=== PATIENT | male | born 1960 | race Caucasian/White ===

== ENCOUNTER → 2018-03-14 | Outpatient (CLI) | payer MEDICARE, OTHER ==
--- NOTE | 2018-03-14 12:47 | Diagnostic Imaging Report ---
PROCEDURE:KNEE LEFT THREE VIEWS TECHNIQUE:AP, lateral and oblique views left knee INDICATION:Knee pain; internal derangement. COMPARISON:None. FINDINGS: The left knee is intact. Mild 3 compartment joint space narrowing with small marginal osteophytes and subchondral sclerosis. Tibial spine spurring. Small suprapatellar effusion. Index soft tissues. CONCLUSION: Small effusion with 3 compartment degenerative change. Dictated by: Víctor Hernandez M.D. on 03/14/2018 at 12:51 Electronically approved by: Víctor Hernandez M.D. on 03/14/2018 at 12:51
== END ==
LOC: RAD 11:47
PROVIDERS: ATTEND Family Medicine
DX: M23.8X2 Other internal derangements of left knee (principal)

== ENCOUNTER → 2018-03-20 | Outpatient (CLI) | payer MEDICARE, OTHER ==
--- NOTE | 2018-03-21 09:03 | Diagnostic Imaging Report ---
Left knee MRI without contrast. History: Knee pain. Internal arrangement. Fall. Decreased range of motion Comparison: October 26, 2016. Technique: Multiplanar multi-sequence MRI of the knee without contrast. Findings: Medial compartment: There is an obliquely oriented tear involving the posterior horn of the medial meniscus which is essentially unchanged. The medial compartmental articular cartilage surfaces are thinned with regions of fraying and fissuring. There are small peripheral marginal osteophytes. The medial collateral ligament complex is intact. Lateral compartment: There is a complex lateral meniscal tear involving the anterior horn and body segments. There are regions of full-thickness articular cartilage loss in the lateral compartment with underlying bone marrow edema. This is worse when compared with the prior exam. There are peripheral marginal osteophytes. The lateral collateral ligament complex is intact. Intercondylar notch: The ACL and PCL are intact. Patellofemoral compartment: There are regions of full-thickness articular cartilage loss in the patellofemoral compartment with underlying bone marrow edema. Extensor mechanism: The quadriceps and patellar tendons are normal. Other findings: There is a joint effusion and synovitis. There is no acute fracture, subluxation or avascular necrosis. 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 IMPRESSION: Complex lateral meniscal tear with advanced degenerative arthrosis in the lateral compartment of the knee. This is worse when compared with the prior exam. Nondisplaced medial meniscal tear with early degenerative arthrosis in the medial compartment of the knee. This is essentially unchanged Regions of full-thickness articular cartilage loss in the patellofemoral compartment with mild underlying bone marrow edema. This is essentially unchanged Joint effusion, synovitis and lobulated Laughlin's cyst. This is essentially unchanged. Signed by: Dr. Geronimo Al M.D. on 03/21/2018 9:00 AM
== END ==
LOC: MRI 16:07
PROVIDERS: ATTEND Family Medicine
DX: M23.8X2 Other internal derangements of left knee (principal)

== ENCOUNTER 2018-05-02 09:52 | Emergency (ER) | payer MEDICARE, OTHER ==
[~2018-05-02] VITALS: Ht 172.7 cm; Wt 86.2 kg
[2018-05-02] MEDS ORDERED: ASPIRIN 81 MG CHEW TAB PO ONE (10:00)
--- NOTE | 2018-05-02 12:02 | Diagnostic Imaging Report ---
History:Confusion Comparison studies:MRI brain 03/25/2015 Technique: Axial images were obtained from the skull base to the vertex. Coronal and sagittal images reconstructed from the axial data. Intravenous contrast: None Findings: Scalp/skull: No acute abnormalities. Bifrontal nuha holes Extra-axial spaces: No masses. No fluid collections. Brain sulci: Moderately prominent the frontal convexities. Ventricles: Moderate compensatory dilatation. No hydrocephalus. Parenchyma: Scattered small hypodensities in the supratentorial white matter are small vessel ischemic changes. No masses, hemorrhage, acute or chronic cortical vascular insults. Sellar/suprasellar region: No abnormalities. Craniocervical junction: Patent foramen magnum. No Chiari one malformation. Incidental findings: Atherosclerotic calcifications in the carotid siphons . Impression: No acute abnormalities. Chronic findings: 1. Moderate frontal volume loss, this could be seen in some dementias. Mild generalized bone 2. Stable ventriculomegaly more prominent at the frontal horns, could be seen in volume loss or normal pressure hydrocephalus. 3. Mild supratentorial white matter small vessel ischemic changes. 4. Bifrontal nuha holes. Signed by: DR Marcial Diaz M.D. on 05/02/2018 11:59 AM
== END 2018-05-02 10:39 | disposition home or self-care (01) ==
LOC: ER 09:52
DX: R53.1 Weakness (principal); R26.2 Difficulty in walking, not elsewhere classified; F17.210 Nicotine dependence, cigarettes, uncomplicated
CPT/HCPCS: 70450; 99283

== ENCOUNTER 2018-06-10 20:40 | Inpatient (IN) | payer MEDICARE, OTHER ==
[~2018-06-10] VITALS: Ht 170.2 cm; Wt 89.9 kg
[2018-06-10 21:12] LABS: BASOPHILS % 0.2 % (0.0-1.0); EOSINOPHILS % 0.3 % (0.0-6.0); HEMATOCRIT 35.6 % (38.2-49.6); HEMOGLOBIN 12.4 g/dL (14.0-18.0); LYMPHOCYTES # (AUTO) 2.1 (1.0-3.2); LYMPHOCYTES % 22.5 % (18.0-39.1); MEAN CORPUSCULAR HEMOGLOBIN 32.5 pg (28-32); MEAN CORPUSCULAR HGB CONC 34.8 g/dL (31-35); MEAN CORPUSCULAR VOLUME 93.2 fL (81-99); MONOCYTES # (AUTO) 1.1 (0.2-0.8); MONOCYTES % 12.1 % (4.4-11.3); NEUTROPHILS # (AUTO) 5.9 (2.1-6.9); NEUTROPHILS % 64.4 % (38.7-80.0); PLATELET COUNT 167 x10e3/uL (140-360); RED BLOOD COUNT 3.82 x10e6/uL (4.3-5.7); RED CELL DISTRIBUTION WIDTH 12.3 % (11.7-14.4)
[2018-06-10 21:26] LABS: ALANINE AMINOTRANSFERASE 10 IU/L (0-55); ALBUMIN 3.4 g/dL (3.5-5.0); ALBUMIN/GLOBULIN RATIO 1.3 (0.8-2.0); ALKALINE PHOSPHATASE 49 IU/L (40-150); ANION GAP 13.1 mmol/L (8-16); BLOOD UREA NITROGEN 9 mg/dL (7-26); BUN/CREATININE RATIO 13 (6-25); CALCIUM 8.6 mg/dL (8.4-10.2); CARBON DIOXIDE 24 mmol/L (22-29); CHLORIDE 98 mmol/L (98-107); CREATININE, SERUM 0.68 mg/dL (0.72-1.25); EST GLOMERULAR FILTRATION RATE > 60 ML/MIN (60-); GLUCOSE 157 mg/dL (74-118); POTASSIUM 4.1 mmol/L (3.5-5.1); SODIUM 131 mmol/L (136-145)
--- NOTE | 2018-06-10 22:09 | Diagnostic Imaging Report ---
EXAM: KNEE RIGHT THREE VIEWS, AP, lateral and oblique INDICATION: Right knee pain after fall today COMPARISON: None FINDINGS: BONES: Old healed right femoral mid shaft fracture stabilized by intramedullary laura and cerclage wires. A screw traverses across the proximal tibial metaphysis. No acute fracture. JOINTS: No malalignment. SOFT TISSUES: Soft tissue swelling predominantly anterior lateral aspect of the knee. Study is indeterminate for joint effusion. IMPRESSION: Large amount of soft tissue swelling/possible hematoma predominantly anterior and lateral aspect of the knee. The study is indeterminate for joint effusion. No evidence of an acute fracture. If symptoms persist, a follow-up MRI is recommended to evaluate for ligamentous injury. Signed by: Dr. Johanna Quinteros M.D. on 06/10/2018 10:06 PM
--- NOTE | 2018-06-10 22:13 | Diagnostic Imaging Report ---
EXAM: HIP RIGHT 2-3 VW (+/- PELVIS) INDICATION: Right knee pain after fall COMPARISON: None FINDINGS: BONES: There is an old healed right femoral mid shaft fracture stabilized with cerclage wire and an intramedullary laura that traverses through the greater trochanter. There is no evidence of a pelvis or hip fracture. Neither femoral neck is seen in profile. JOINTS: Degenerative changes of the bilateral hips. SOFT TISSUES: Normal IMPRESSION: No evidence of an acute pelvic or right hip fracture. Signed by: Dr. Johanna Quinteros M.D. on 06/10/2018 10:09 PM
--- NOTE | 2018-06-10 22:41 | Diagnostic Imaging Report ---
History:Fall Comparison studies:CT head 05/21/2018 Technique: Axial images were obtained from the skull base to the vertex. Coronal and sagittal images reconstructed from the axial data. Intravenous contrast: None Findings: Scalp/skull: No acute abnormalities. Bifrontal nuha holes Extra-axial spaces: No masses. No fluid collections. Brain sulci: Moderately prominent the frontal convexities. Ventricles: Moderate compensatory dilatation. No hydrocephalus. Parenchyma: Scattered small hypodensities in the supratentorial white matter are small vessel ischemic changes. No masses, hemorrhage, acute or chronic cortical vascular insults. Sellar/suprasellar region: No abnormalities. Craniocervical junction: Patent foramen magnum. No Chiari one malformation. Incidental findings: Atherosclerotic calcifications in the carotid siphons . Impression: No acute abnormalities. Chronic findings: 1. Moderate frontal volume loss, stable. 2. Stable ventriculomegaly more prominent at the frontal horns, stable. 3. Mild supratentorial white matter small vessel ischemic changes. 4. Bifrontal nuha holes. Signed by: DR Marcial Diaz M.D. on 06/10/2018 10:37 PM 1.
--- NOTE | 2018-06-10 22:44 | Diagnostic Imaging Report ---
History: Fall Comparison studies: None Technique: Axial images were obtained through the cervical region.. Coronal and sagittal images reconstructed from the axial data.. Intravenous contrast: None Findings: Fractures: None. Soft tissues: No gross abnormalities. Atlantoaxial articulation: Intact. Alignment: Straightening of the normal lordosis. No scoliosis. Cervicomedullary junction: No abnormalities. The foramen magnum is patent. Vertebrae: No infection or neoplasm. Degenerative changes: The. IMPRESSION: 1. No acute cervical spine abnormalities. 2. Cannot exclude ligament, spinal cord and or vascular abnormalities on the basis of this examination. Signed by: DR Marcial Diaz M.D. on 06/10/2018 10:40 PM
[2018-06-10] MEDS ORDERED: DIVALPROEX SOD500 M1 PO (23:09)
[2018-06-10] MEDS ORDERED: RISPERIDONE1 MG PO (23:09)
[2018-06-10] MEDS ORDERED: OMEPRAZOLE40 MG PO (23:09)
[2018-06-10] MEDS ORDERED: FLUOXETINE HCL10 MG PO (23:09)
[2018-06-10] MEDS ORDERED: HYDROCODONE/APAP 10MG-325MG TAB PO ONE (23:30)
[2018-06-11] MEDS ORDERED: ONDANSETRON HCL INJ 2 MG/ML VIAL IV PRN (00:15)
[2018-06-11] MEDS: SODIUM CHLORIDE 0.9% 1000ML 1,000 ML IV SCH ×2 (01:32→10:15)
[2018-06-11] MEDS: HYDROCODONE/APAP 10MG-325MG TAB PO PRN ×2 (04:36→14:11)
[2018-06-11 05:00] VITALS: BP 165/83
[2018-06-11 08:15] VITALS: BP 160/95
[2018-06-11] MEDS: LOSARTAN POTASSIUM 100 MG TAB PO SCH (09:00)
[2018-06-11] MEDS: RISPERIDONE 1 MG TAB PO SCH ×3 (09:00→20:23)
[2018-06-11] MEDS: FLUOXETINE HCL 20 MG CAP PO SCH (09:00)
[2018-06-11] MEDS: PANTOPRAZOLE SOD 40 MG TABEC PO SCH (09:00)
[2018-06-11] MEDS: DEPAKOTE ER 500MG TAB(ONCE DAILY) PO SCH ×2 (09:00→16:26)
[2018-06-11] MEDS ORDERED: PANTOPRAZOLE SOD 40 MG TABEC PO SCH (09:00)
[2018-06-11] MEDS ORDERED: FLUOXETINE HCL 10 MG CAP PO SCH (09:00)
[2018-06-11] MEDS ORDERED: RISPERIDONE 1 MG TAB PO SCH (09:00)
[2018-06-11 10:48] VITALS: BP 160/95
--- NOTE | 2018-06-11 11:13 | Diagnostic Imaging Report ---
TECHNIQUE: Magnetic resonance imaging of the RIGHT KNEE was performed WITHOUT injected contrast. HISTORY: Fall, pain COMPARISON: Right knee radiographs June 10, 2018. FINDINGS: Metallic susceptibility artifact and inhomogeneous fat saturation limit the evaluation. The following findings are within these limitations. LIGAMENTS AND TENDONS: ACL: Intact PCL: Intact Collateral ligaments: Intact Iliotibial band: Unremarkable Popliteal tendon: Intact Extensor mechanism: Intact JOINT: Menisci: Medial: No discrete visible displaced tear. Lateral: No discrete visible displaced tear. Articular Cartilage: Medial Compartment: No focal defect. Lateral Compartment: No focal defect. Patellofemoral Compartment: Full-thickness erosion of the patellar apex and adjacent facets. Joint Fluid: The amount of fluid within the joint is within physiologic limits. BONES: Partially obscured by the stated limitations, but no visible focal or infiltrative bone marrow replacing abnormality or acute fracture. SOFT TISSUES: Within the superficial anterolateral soft tissues, a 8 cm (AP) x 5 cm (ML) x 14 cm (CC) heterogeneous collection with prominent surrounding regional soft tissue edema. IMPRESSION: 1. Large anterolateral superficial soft tissue collection, given the provided history, compatible with a large hematoma. 2. Moderate patellofemoral compartment osteoarthrosis. Signed by: Dr. Manny Pride D.O., M.M.M. on 06/11/2018 11:09 AM
[2018-06-11 16:14] VITALS: BP 137/83
[2018-06-11 20:00] VITALS: BP 133/77
[2018-06-12] VITALS (7 sets, daily range): BP systolic 121–161; BP diastolic 63–76
[2018-06-12 05:07] LABS: BASOPHILS % 0.2 % (0.0-1.0); EOSINOPHILS % 0.3 % (0.0-6.0); HEMATOCRIT 30.4 % (38.2-49.6); HEMOGLOBIN 10.3 g/dL (14.0-18.0); LYMPHOCYTES # (AUTO) 2.2 (1.0-3.2); MEAN CORPUSCULAR HEMOGLOBIN 32.5 pg (28-32); MEAN CORPUSCULAR HGB CONC 33.9 g/dL (31-35); MEAN CORPUSCULAR VOLUME 95.9 fL (81-99); MONOCYTES # (AUTO) 1.6 (0.2-0.8); MONOCYTES % 16.9 % (4.4-11.3); NEUTROPHILS # (AUTO) 5.6 (2.1-6.9); NEUTROPHILS % 59.1 % (38.7-80.0); PLATELET COUNT 139 x10e3/uL (140-360); RED BLOOD COUNT 3.17 x10e6/uL (4.3-5.7); RED CELL DISTRIBUTION WIDTH 12.5 % (11.7-14.4)
[2018-06-12 05:28] LABS: ANION GAP 14.8 mmol/L (8-16); BLOOD UREA NITROGEN 11 mg/dL (7-26); BUN/CREATININE RATIO 14 (6-25); CALCIUM 9.2 mg/dL (8.4-10.2); CARBON DIOXIDE 30 mmol/L (22-29); CHLORIDE 96 mmol/L (98-107); CREATININE, SERUM 0.78 mg/dL (0.72-1.25); EST GLOMERULAR FILTRATION RATE > 60 ML/MIN (60-); GLUCOSE 111 mg/dL (74-118); POTASSIUM 4.8 mmol/L (3.5-5.1); SODIUM 136 mmol/L (136-145)
[2018-06-12 06:52] LABS: ANISOCYTOSIS SLIGHT; HYPOCHROMASIA SLIGHT; LYMPHOCYTES % (MANUAL) 24 % (19-48); MONOCYTES % (MANUAL) 11 % (3.4-9.0); NEUTROPHILS % (MANUAL) 62 % (40-74); PLATELET ESTIMATE SLIGHTLY DECREASED; RBC MORPHOLOGY COMMENT NORMAL
[2018-06-12] MEDS: DEPAKOTE ER 500MG TAB(ONCE DAILY) PO SCH ×2 (08:25→18:00)
[2018-06-12] MEDS: RISPERIDONE 1 MG TAB PO SCH ×3 (08:25→20:53)
[2018-06-12] MEDS: FLUOXETINE HCL 20 MG CAP PO SCH (08:25)
[2018-06-12] MEDS: LOSARTAN POTASSIUM 100 MG TAB PO SCH (08:25)
[2018-06-12] MEDS: PANTOPRAZOLE SOD 40 MG TABEC PO SCH (08:25)
[2018-06-12] MEDS: HYDROCODONE/APAP 10MG-325MG TAB PO PRN ×2 (12:10→18:14)
--- NOTE | 2018-06-12 14:06 | Consultation ---
DATE OF CONSULTATION: June 12, 2018 CHIEF COMPLAINT: Right knee pain. HISTORY OF PRESENT ILLNESS: This patient is a 58-year-old male with a significant history of multiple TBIs, who presents to the hospital with right knee pain and inability to bear weight on the right leg. The patient is unable to give a history because of his TBIs. Further history was obtained from his mother. He reportedly had a fall two days ago, landing on the right side. She states he has a significant history of difficulty walking for many years related to multiple injuries sustained when he had his traumatic brain injuries. She states he normally uses a walker. She states that they were recently considering placement in a detention facility because of this. PAST MEDICAL HISTORY: See H and P. ALLERGIES: CEPHALEXIN. SOCIAL HISTORY: The mother states the patient does not drink or smoke. PHYSICAL EXAMINATION: In general, this is a well-nourished male. He is awake and alert. He is oriented to name and date of only. He cannot answer questions appropriately. Gross inspection of his right knee and leg area shows a contusion along the lateral aspect of the thigh just above the knee. He has a large hematoma just superolateral to the knee. There is no erythema. There is no effusion of the knee. He has limited range of motion of the knee secondary to pain. The knee is grossly stable. There are multiple small surgical scars. IMAGING: MRI of the right knee was obtained and shows a large collection of fluid to the anterolateral aspect of the knee. There is no intraarticular involvement. He has metal artifact from previous orthopedic hardware. He also has advanced patellofemoral chondromalacia. ASSESSMENT AND PLAN: This is a 58-year-old male with a large hematoma in the right leg. The findings were discussed with the mother. Options were discussed at length. After discussion of the options, we have elected an aspiration attempt of the hematoma. After obtaining informed consent, we prepped the area in a sterile manner and anesthetized the site with lidocaine 2%. Using an 18-gauge needle, we attempted to aspirate the hematoma. This was coagulated, and we were unable to aspirate any fluid from the site. Further options were discussed with the mother. After discussing the options, we decided on proceeding with an irrigation and debridement. Risks and benefits were explained. She states that she understands, and they wish to proceed. We will plan for irrigation and debridement of the hematoma in his right leg early tomorrow. Thank you for the consultation. Dictated by Andrei Hernandez PA-C. Job#: [id number] MH
[2018-06-12] MEDS ORDERED: KETOROLAC TROMETHAMINE 30 MG/ML VIAL IV PRN (20:30)
[2018-06-13] VITALS: BP 139/78
[2018-06-13] MEDS: HYDROCODONE/APAP 10MG-325MG TAB PO PRN ×2 (01:25→15:36)
[2018-06-13 04:00] VITALS: BP 133/80
[2018-06-13 08:00] VITALS: BP 121/77
[2018-06-13] MEDS ORDERED: BUPIVACAINE HCL 0.5% INJ 30 ML VIAL INJ ONE (08:42)
[2018-06-13] MEDS ORDERED: BACITRACIN 50,000 UNIT VIAL ONE (08:42)
[2018-06-13] MEDS ORDERED: LIDOCAINE 1% W/EPINEPHRINE 20 ML VIAL ONE (08:54)
[2018-06-13] MEDS ORDERED: ONDANSETRON HCL INJ 2 MG/ML VIAL IV PRN (09:00)
[2018-06-13] MEDS ORDERED: PROMETHAZINE HCL (IM) 25 MG/ML VIAL IM PRN (09:00)
[2018-06-13] MEDS ORDERED: DOCUSATE SODIUM 100 MG CAP PO PRN (09:00)
[2018-06-13] MEDS ORDERED: DIPHENHYDRAMINE HCL INJ 50 MG/ML VIAL IM/IV PRN (09:00)
[2018-06-13] MEDS ORDERED: ACETAMINOPHEN 650 MG SUPP PR PRN (09:00)
[2018-06-13] MEDS: FLUOXETINE HCL 20 MG CAP PO SCH (10:54)
[2018-06-13] MEDS: DEPAKOTE ER 500MG TAB(ONCE DAILY) PO SCH ×2 (10:54→17:00)
[2018-06-13] MEDS: LOSARTAN POTASSIUM 100 MG TAB PO SCH (10:54)
[2018-06-13] MEDS: PANTOPRAZOLE SOD 40 MG TABEC PO SCH (10:54)
[2018-06-13] MEDS: KETOROLAC TROMETHAMINE 30 MG/ML VIAL IV PRN ×2 (11:10→23:35)
[2018-06-13] MEDS: CLINDAMYCIN PHOS 900MG/ 50ML 50 ML IV ONE ×2 (11:35→11:56)
[2018-06-13] MEDS: RISPERIDONE 1 MG TAB PO SCH ×3 (11:36→20:08)
[2018-06-13 12:00] VITALS: BP 168/96
--- NOTE | 2018-06-13 13:53 | Operative Report ---
DATE OF PROCEDURE: June 13, 2018 CORPORATE PLANNING MANAGER: Andrei Hernandez PA-C The patient was brought to the operating room for induction of anesthesia. Throughout this case, my PA's assistance was necessary for retraction of soft tissue and positioning of the extremity. This allows for efficient and technically successful execution of the operation and is considered medically necessary. PREOPERATIVE DIAGNOSIS: Traumatic hematoma, right leg. POSTOPERATIVE DIAGNOSIS: Traumatic hematoma, right leg. PROCEDURE: Irrigation and debridement of right leg hematoma. INDICATIONS: The patient is a 58-year-old gentleman who has a history of a traumatic brain injury. He is a limited ambulator. He sustained a direct blow to the upper lateral aspect of his right leg. He now has a large tense hematoma. We attempted to aspirate this in the patient's room, but the blood had coagulated, and I could not decompress the hematoma. We discussed the options and plan on a surgical decompression. The risks and benefits were explained. He stated he understood and wished to proceed. His mother was also present since he has a traumatic brain injury. Orders were written for him to be n.p.o. However, he ate some breakfast and so we will do this under local. DESCRIPTION OF PROCEDURE: The patient was brought into the operating room. The lateral aspect of the right leg was infiltrated with 1% lidocaine with epinephrine. The area was prepped and draped in a sterile manner. A 1.5-inch incision was made directly over the tense portion of the hematoma. A massive hematoma was evacuated. Large clunks of coagulated blood were removed. The area was thoroughly irrigated. Cultures were taken. There was no suspicion of infection. The incision was closed with fredy. A sterile bandage with a bolster was applied. He was transported to the recovery room in stable condition. All of the blood loss was from the hematoma and that amounted to about 250 mL. Job#: [id number] NE
[2018-06-13 16:00] VITALS: BP 139/85
[2018-06-13 20:00] VITALS: BP 126/68
[2018-06-14] VITALS (7 sets, daily range): BP systolic 110–140; BP diastolic 56–77
[2018-06-14] MEDS ORDERED: ACETAMINOPHEN 1000 MG/100 ML IV PRN (09:00)
[2018-06-14] MEDS: FLUOXETINE HCL 20 MG CAP PO SCH (09:14)
[2018-06-14] MEDS: RISPERIDONE 1 MG TAB PO SCH ×3 (09:14→20:22)
[2018-06-14] MEDS: DEPAKOTE ER 500MG TAB(ONCE DAILY) PO SCH ×2 (09:14→17:04)
[2018-06-14] MEDS: LOSARTAN POTASSIUM 100 MG TAB PO SCH (09:14)
[2018-06-14] MEDS: PANTOPRAZOLE SOD 40 MG TABEC PO SCH (09:14)
[2018-06-14] MEDS: HYDROCODONE/APAP 10MG-325MG TAB PO PRN ×2 (12:49→17:04)
[2018-06-14] MEDS: KETOROLAC TROMETHAMINE 30 MG/ML VIAL IV PRN (22:48)
[2018-06-15] VITALS (8 sets, daily range): BP systolic 129–145; BP diastolic 63–78
[2018-06-15] MEDS: RISPERIDONE 1 MG TAB PO SCH ×3 (08:51→20:16)
[2018-06-15] MEDS: LOSARTAN POTASSIUM 100 MG TAB PO SCH (08:51)
[2018-06-15] MEDS: FLUOXETINE HCL 20 MG CAP PO SCH (08:51)
[2018-06-15] MEDS: DEPAKOTE ER 500MG TAB(ONCE DAILY) PO SCH ×2 (08:51→16:28)
[2018-06-15] MEDS: PANTOPRAZOLE SOD 40 MG TABEC PO SCH (08:51)
[2018-06-15] MEDS: HYDROCODONE/APAP 5MG-325MG TAB PO PRN (16:27)
[2018-06-16] VITALS (7 sets, daily range): BP systolic 118–136; BP diastolic 60–73
[2018-06-16] MEDS: HYDROCODONE/APAP 5MG-325MG TAB PO PRN ×2 (02:40→11:00)
[2018-06-16] MEDS: PANTOPRAZOLE SOD 40 MG TABEC PO SCH (09:20)
[2018-06-16] MEDS: FLUOXETINE HCL 20 MG CAP PO SCH (09:20)
[2018-06-16] MEDS: RISPERIDONE 1 MG TAB PO SCH ×3 (09:20→20:27)
[2018-06-16] MEDS: DEPAKOTE ER 500MG TAB(ONCE DAILY) PO SCH ×2 (09:20→16:56)
[2018-06-16] MEDS: LOSARTAN POTASSIUM 100 MG TAB PO SCH (09:20)
[2018-06-17 00:40] VITALS: BP 144/67
[2018-06-17 01:05] VITALS: BP 144/67
[2018-06-17 04:30] VITALS: BP 133/76
[2018-06-17 07:54] VITALS: BP 122/70
[2018-06-17 08:10] VITALS: BP 122/70
[2018-06-17] MEDS: LOSARTAN POTASSIUM 100 MG TAB PO SCH (08:53)
[2018-06-17] MEDS: RISPERIDONE 1 MG TAB PO SCH (08:53)
[2018-06-17] MEDS: FLUOXETINE HCL 20 MG CAP PO SCH (08:53)
[2018-06-17] MEDS: PANTOPRAZOLE SOD 40 MG TABEC PO SCH (08:53)
[2018-06-17] MEDS: DEPAKOTE ER 500MG TAB(ONCE DAILY) PO SCH (08:53)
[2018-06-17 12:00] VITALS: BP 116/73
== END 2018-06-17 13:47 | DRG 581 ==
LOC: ER 20:40 → ERHOLD 06-11 00:25 → MED/SURG2 06-11 01:36
PROVIDERS: ADMIT Family Medicine; ATTEND Family Medicine
PROC: 0J9N0ZZ Drainage of Right Lower Leg Subcutaneous Tissue and Fascia, Open Approach (ICD-10-PCS; principal; 2018-06-13 08:59)
DX: S80.11XA Contusion of right lower leg, initial encounter (principal); Z87.820 Personal history of traumatic brain injury; W01.0XXA Fall on same level from slipping, tripping and stumbling without subsequent striking against object, initial encounter; R26.81 Unsteadiness on feet; M25.461 Effusion, right knee; Z91.81 History of falling; F03.90 Unspecified dementia, unspecified severity, without behavioral disturbance, psychotic disturbance, mood disturbance, and anxiety; I10 Essential (primary) hypertension; G40.909 Epilepsy, unspecified, not intractable, without status epilepticus
CPT/HCPCS: 36415; 70450; 72125; 80048; 80053; 82948; 85025; 87071; 87075; 87205; 97139; 99284; J1200; J1885; J7030

== ENCOUNTER 2018-08-09 17:08 | Emergency (ER) | payer MEDICARE, OTHER ==
[~2018-08-09] VITALS: Ht 170.2 cm; Wt 89.8 kg
[~2018-08-09 17:08] MED LIST: DIVALPROEX SOD500 M1 PO; FLUOXETINE HCL10 MG PO; OMEPRAZOLE40 MG PO; RISPERIDONE1 MG PO
[2018-08-09 17:51] LABS: BASOPHILS % 0.3 % (0.0-1.0); EOSINOPHILS # (AUTO) 0.2 (0.0-0.4); EOSINOPHILS % 1.1 % (0.0-6.0); HEMATOCRIT 39.2 % (38.2-49.6); HEMOGLOBIN 12.4 g/dL (14.0-18.0); LYMPHOCYTES # (AUTO) 3.2 (1.0-3.2); LYMPHOCYTES % 20.8 % (18.0-39.1); MEAN CORPUSCULAR HEMOGLOBIN 31.2 pg (28-32); MEAN CORPUSCULAR HGB CONC 31.6 g/dL (31-35); MEAN CORPUSCULAR VOLUME 98.5 fL (81-99); MONOCYTES # (AUTO) 1.2 (0.2-0.8); NEUTROPHILS # (AUTO) 10.4 (2.1-6.9); NEUTROPHILS % 67.5 % (38.7-80.0); PLATELET COUNT 274 x10e3/uL (140-360); RED BLOOD COUNT 3.98 x10e6/uL (4.3-5.7); RED CELL DISTRIBUTION WIDTH 13.3 % (11.7-14.4)
[2018-08-09 18:08] LABS: ALANINE AMINOTRANSFERASE 14 IU/L (0-55); ALBUMIN 2.9 g/dL (3.5-5.0); ALKALINE PHOSPHATASE 63 IU/L (40-150); ANION GAP 13.2 mmol/L (8-16); BLOOD UREA NITROGEN 9 mg/dL (7-26); BUN/CREATININE RATIO 13 (6-25); CALCIUM 9.2 mg/dL (8.4-10.2); CARBON DIOXIDE 30 mmol/L (22-29); CHLORIDE 100 mmol/L (98-107); CREATINE KINASE 38 IU/L (30-200); CREATININE, SERUM 0.69 mg/dL (0.72-1.25); EST GLOMERULAR FILTRATION RATE > 60 ML/MIN (60-); GLUCOSE 110 mg/dL (74-118); POTASSIUM 4.2 mmol/L (3.5-5.1); SODIUM 139 mmol/L (136-145)
[2018-08-09] MEDS ORDERED: RISPERIDONE2 MG (18:16)
[2018-08-09] MEDS ORDERED: SODIUM CHLORIDE1 GM PO (18:16)
[2018-08-09] MEDS ORDERED: FLOMAX0.4 MG PO (18:16)
[2018-08-09] MEDS ORDERED: LOSARTAN POTASS50 MG (18:16)
[2018-08-09] MEDS ORDERED: PANTOPRAZOLE SO40 MG PO (18:16)
[2018-08-09] MEDS ORDERED: CRANBERRY TABL1 EACH (18:16)
[2018-08-09] MEDS ORDERED: DOCUSATE SODIU100 MG PO (18:16)
[2018-08-09] MEDS ORDERED: TYLENOL WITH C1 EACH PO (18:16)
[2018-08-09] MEDS ORDERED: PROMETHAZINE HC25 M1 PO (18:16)
[2018-08-09] MEDS ORDERED: ACETAMINOPHEN325 M1 PO (18:16)
--- NOTE | 2018-08-09 18:34 | Diagnostic Imaging Report ---
Exam: CTs of the brain and cervical spine without contrast History: Fall, pain Comparison studies: Brain and cervical spine CTs from 06/10/2018 Technique: Axial images were obtained from the brain and cervical spine. Coronal and sagittal images reconstructed from the axial data. Dose modulation, iterative reconstruction, and/or weight based adjustment of the mA/kV was utilized to reduce the radiation dose to as low as reasonably achievable. Intravenous contrast: None Findings: Head CT: Scalp/skull: Mild scalp hematoma near the vertex over the left parietal bone. Stable nonspecific fat stranding in the scalp over the right parietal bone. No fractures, blastic or lytic lesions. Brain sulci: Moderately prominent, most pronounced in the frontal lobes. Ventricles: Moderate compensatory dilatation. No hydrocephalus. Extra-axial spaces: No masses. No fluid collections. Parenchyma: Confluent hypodensities in the supratentorial and periventricular white matter are small vessel ischemic changes. No masses, hemorrhage, acute or chronic cortical vascular insults. Sellar/suprasellar region: No abnormalities. Craniocervical junction: Patent foramen magnum. No Chiari one malformation. Cervical spine CT: Airway: Patent. Fractures: None. Soft tissues: No gross abnormalities. Atlantoaxial articulation: Intact. Alignment: Loss of normal cervical lordosis is either positional or due to muscle spasm. No scoliosis. Cervicomedullary junction: No abnormalities. Patent foramen magnum. Vertebrae: No infection or neoplasm. Degenerative changes: Mildly degenerated disc at C5-C6. Next and no significant canal stenosis. C5-C6: Moderate right foraminal stenosis due to facet and uncovertebral arthrosis. C6-C7: Mild right foraminal stenosis due to uncovertebral arthrosis. Incidental findings: Mild calcified atherosclerotic plaque in the carotid bulbs.. IMPRESSION: Head CT: 1. No acute intracranial abnormalities. Specifically, no intracranial hemorrhage or acute territorial vascular insult. 2. Mild left parietal scalp hematoma. Chronic findings: Mild supratentorial microvascular ischemic changes with moderate volume predominantly bifrontal volume loss and compensatory dilatation of the ventricles. Cervical spine CT: 1. No acute abnormalities. Specifically, no fractures or dislocations. 2. Cannot adequately evaluate for ligament, spinal cord and or vascular abnormalities. Preliminary report dictated by Dr. Kizzy Alexis, Neuroradiology Fellow. A final report by the attending radiologist will follow. Signed by: Dr. Nargis Mackey M.D. on 08/09/2018 7:35 PM
[2018-08-09 18:42] LABS: ALBUMIN/GLOBULIN RATIO 0.9 (0.8-2.0)
[2018-08-09 19:06] LABS: CLARITY,URINE CLEAR (CLEAR); COLOR,URINE YELLOW (YELLOW); LEUKOCYTE ESTERASE ,URINE NEGATIVE (NEGATIVE); NITRITE,URINE NEGATIVE (NEGATIVE)
[2018-08-09 19:07] LABS: BILIRUBIN,URINE NEGATIVE (NEGATIVE); KETONES,URINE NEGATIVE (NEGATIVE); PROTEIN,URINE DIPSTICK NEGATIVE (NEGATIVE); URINE UROBILINOGEN 0.2 mg/dL (0.2 - 1)
[2018-08-09 19:18] LABS: BACTERIA,URINE MODERATE /HPF; EPITHELIAL CELLS,URINE RARE /LPF
[2018-08-09 19:32] LABS: EOSINOPHILS % (MANUAL) 3 % (0-7); HYPERSEGMENTED NEUTROPHILS FEW; LYMPHOCYTES % (MANUAL) 26 % (19-48); MONOCYTES % (MANUAL) 5 % (3.4-9.0); NEUTROPHILS % (MANUAL) 66 % (40-74); PLATELET ESTIMATE ADEQUATE; PLATELET MORPHOLOGY COMMENT NORMAL
== END 2018-08-09 20:28 ==
LOC: ER 17:08
DX: S00.83XA Contusion of other part of head, initial encounter (principal); W18.39XA Other fall on same level, initial encounter; Y92.128 Other place in nursing home as the place of occurrence of the external cause; N39.0 Urinary tract infection, site not specified; I10 Essential (primary) hypertension; K21.9 Gastro-esophageal reflux disease without esophagitis; F32.9 Major depressive disorder, single episode, unspecified; Z87.820 Personal history of traumatic brain injury; G40.909 Epilepsy, unspecified, not intractable, without status epilepticus
CPT/HCPCS: 36415; 70450; 72125; 80053; 81001; 82550; 82553; 84484; 85025; 93005; 99284

== ENCOUNTER 2020-07-10 19:30 | Emergency (ER) | payer MEDICARE, OTHER ==
[~2020-07-10] VITALS: Ht 170.2 cm; Wt 89.8 kg
[~2020-07-10 19:30] MED LIST changes: +ACETAMINOPHEN325 M1 PO; +CRANBERRY TABL1 EACH; +DOCUSATE SODIU100 MG PO; +FLOMAX0.4 MG PO; +LOSARTAN POTASS50 MG; +PANTOPRAZOLE SO40 MG PO; +PROMETHAZINE HC25 M1 PO; +RISPERIDONE2 MG; +SODIUM CHLORIDE1 GM PO; +TYLENOL WITH C1 EACH PO
--- OUTSIDE RECORDS SUMMARY | 2020-07-10 20:01 | XMS REPORT | Continuity of Care Document ---
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 Condition 09/29/2014 [facility] Medications Medication Details Route Status Patient Instructions Ordering Provider Order Date Source [facility] OMEPRAZOLE 20 MG TBEC Active 09/29/2014 [facility] DIVALPROEX SODIUM 500 MG [facility] Active 09/29/2014 [facility] FLUOXETINE HCL TABS Active 09/29/2014 [facility] Allergies, Adverse Reactions, Alerts No Known Medication Allergies Immunizations No Data Provided for This Section Results No Data Provided for This Section Pathology Reports No Data Provided for This Section Diagnostic Reports No Data Provided for This Section Consultation Notes No Data Provided for This Section Discharge Summaries No Data Provided for This Section History and Physicals No Data Provided for This Section Vital Signs Vital Sign Value Date Comments Source Weight 198.00 09/29/2014 [facility] Systolic (mm Hg) 122 09/29/2014 [facility] Diastolic (mm Hg) 84 09/29/2014 [facility] Heart Rate 85 09/29/2014 [facility] Respitory Rate 17 09/29/2014 [facility] Temperature Oral (F) 97.5 F 09/29/2014 [facility] Height 60 0 09/29/2014 [facility] Encounters Location Location Details Encounter Type Encounter Number Reason For Visit Attending Provider ADM Date DC Date Status Source [facility] [place] Office Visit [id number] Landen Hayes MD 09/29/2014 09/29/2014 [facility] Procedures Procedure Code Date Perfomer Comments Source smoking/tobacco cessation, patient educa tion and counseling 14 09/29/2014 no [facility] Assessment and Plan No Data Provided for This Section Plan of Care No Data Provided for This Section Social History No Data Provided for This Section Family History No Data Provided for This Section Advance Directives No Data Provided for This Section Functional Status No Data Provided for This Section
--- OUTSIDE RECORDS SUMMARY | 2020-07-10 20:01 | XMS REPORT | Continuity of Care Document ---
Author Author [facility] t Organization [facility] Address 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 Role Phone BATOOL HARRIS, BABAK PCP Dillon SHORTIAN Attphys Unavailable Lary BUSTAMANTE Attphys Unavailable ENIOLary MATTAICA Attphys Unavailable BABAK RENAE Attphys Unavailable Lary BUSTAMANTE Admphys Unavailable Payers Payer Name Policy Type Policy Number Effective Date Expiration Date Lary Orr [employer] [id number] 2011 00:00:00 [facility] Medicare A & B [id number] 1991 00:00:00 [facility] TMHP [id number] [facility] Problems Condition Name Condition Details Condition Category Status Onset Date Resolution Date Last Treatment Date Treating Clinician Comments Source 331.3 - COMMUNICAT HYDR 331. 3 - COMMUNICAT HYDR Active 10/02/2014 [facility] [place] Diagnosis Active 2014-10-02 00:01:00 2015-01-05 08:29:00 Mirna Dobson PERSONAL HISTORY OF TRAUMATIC BRAIN INJURY PERSONAL HISTORY OF TRAUMATIC BRAIN INJURY Active 09/29/2014 Condition 09/29/2014 [facility] Condition Active 2014-09-29 00:00:00 2014-09-29 15:53:00 Mirna Dobson COMMUNICATING HYDROCEPHALUS CO MMUNICATING HYDROCEPHALUS Active 09/29/2014 Condition 09/29/2014 [facility] Condition Active 2014-09-29 00:00:00 2014-09-29 15:53:00 [facility] Fall Fall Problem [facility] History of traumatic brain injury Hx of traumatic brain injury Proble m Active [facility] Inability to ambulate due to right knee Inability to ambulat e due to right knee Problem [facility] Injury of right knee Right knee injury Problem [facility] Allergies, Adverse Reactions, Alerts Allergy Name Allergy Type Status Severity Reaction(s) Onset Date Inacti ve Date Treating Clinician Comments Source Cephalexin Allergy to Substance Active 2018-05-02 00:00:00 [facility] Cephalexin Monohydrate DA Active 2010-01-15 00:00:00 [facility] strawberry DA Active 2010-01-15 00:00:00 [facility] Medications Ordered Medication Name Filled Medication Name Start Date Stop Da te Current Medication? Ordering Clinician Indication Dosage Frequency Signature (SIG) Comments Components Source [facility] OMEPRAZOLE 20 MG [facility] 2014-09-29 00:00:00 Yes [facility] DIVALPROEX SODIUM 500 MG [facility] 2014-09-29 00:00:00 Yes [facility] FLUOXETINE HCL TABS 2014-09-29 00:00:00 Yes [facility] Acetaminophen 325 Mg Tablet Acetaminophen 325 Mg Tablet Yes 325 Every 6 Hours as needed for Pain [facility] Acetaminophen With Codeine (Tylenol With Codeine #3 Ta blet) 1 Each Tablet Acetaminophen With Codeine (Tylenol With Codeine #3 Tablet) 1 Each Tablet Yes 300 Every 8 Hours as needed for Pain [facility] Cranberry/Vit C/L. Sporogenes (Cranberry Tablet) 1 Eac h Tablet Cranberry/Vit C/L. Sporogenes (Cranberry Tablet) 1 Each Tablet Yes 450 Twice A Day [facility] Divalproex Sodium (Divalproex Sodium Er) 500 Mg Tab.er .24h Divalproex Sodium (Divalproex Sodium Er) 500 Mg Tab.er.24h Yes 500 Twice A Day [facility] Docusate Sodium 100 Mg Capsule Docusate Sodium 100 Mg Capsule Yes 100 Every 12 Hours [facility] Fluoxetine Hcl 10 Mg Capsule Fluoxetine Hcl 10 Mg Capsule Y es 40 Daily [facility] Losartan Potassium 50 Mg Tablet Losartan Potassium 50 Mg Tablet Yes Daily [facility] Pantoprazole Sodium (Protonix) 40 Mg Tablet. Pantopr azole Sodium (Protonix) 40 Mg Tablet. Yes 40 Daily [facility] Promethazine Hcl 25 Mg Tablet Promethazine Hcl 25 Mg Tablet Yes 25 Daily as needed for Nausea And Vomiting [facility] Risperidone 2 Mg Tablet Risperidone 2 Mg Tablet Yes Twice A Day [facility] Sodium Chloride 1 Gm Tab Sodium Chloride 1 Gm Tab Yes 1 Daily [facility] Tamsulosin Hcl (Flomax*) 0.4 Mg Cap Tamsulosin Hcl (Flomax*) 0.4 Mg C ap Yes .4 Daily [facility] Omeprazole 40 Mg Capsule., 20 Mg Oral Omeprazole 40 Mg Cap luis daniel., 20 Mg Oral 2018-08-09 00:00:00 No 20 Daily [facility] Risperidone 1 Mg Tablet, 20 Mg Oral Risperidone 1 Mg Tablet, 20 Mg Oral 2018-08-09 00:00:00 No 20 Three Times A Day [facility] Vital Signs Vital Name Observation Time Observation Value Comments Source [facility] 2014-09-29 [facility]:53[facility] 2014-09-29 21:53:00 Nicola Dobson Diastolic (mm Hg) 2014-09-29 21:53:00 [facility] orial [facility] Heart Rate 2014-09-29 21:53:00 [facility] Respitory Rate 2014-09-29 21:53:00 Ulissesori al [place]onson Temperature Oral (F) 2014-09-29 21:53:00 97.5 F [facility] Height 2014-09-29 21:53:00 [facility] Procedures Procedure Date / Time Performed Performing Clinician [facility] e Computed tomography of brain without radiopaque contrast 201 05-04-16 00:00:00 CHAR SHORT V [facility] Computed tomography of cervical spine without contrast 08-09 00:00:00 CHAR SHORT Dillon [facility] DRAINAGE OF R LOW LEG SUBCU/FASCIA, OPEN APPROACH 2018-06-13 00:00:00 VERITO PLATA [facility] MRI jnt of lw extre w/o dye 2018-06-11 00:00:00 CHAO YUAN [facility] Computed tomography of brain without radiopaque contrast 201 05-02-17 00:00:00 CHAO YUAN [facility] Computed tomography of cervical spine without contrast 06-10 00:00:00 CLEARFIELDCHAO [facility] Computed tomography of brain without radiopaque contrast 201 05-01-09 00:00:00 ENIOJESU MATTA Lary [facility] MRI jnt of [facility] extre w/o dye 2018-03-20 00:00:00 DEQUAN RENAE [facility] smoking/tobacco cessation, patient education and counseling 2014-09-29 21:53:00 [facility] Encounters Start Date/Time End Date/Time Encounter Type [facility] Encounter ID Source 2018-08-09 17:08:00 2018-08-09 20:28:00 Departed Emergency Room 1 CHAR SHORT [facility] [id number] [facility] 2018-06-11 00:25:00 2018-06-17 13:47:00 Discharged Inpatient 1 RIA BUSTAMANTE [facility] [id number] [facility] 2018-05-02 09:52:00 2018-05-02 10:39:00 Departed Emergency Room 1 ENIOJESU MATTA [facility] [id number] [facility] 2018-03-20 16:07:00 2018-03-20 16:07:00 Registered Clinic 3 BABAK RENAE [facility] [id number] [facility] 2018-03-14 11:47:00 2018-03-14 11:47:00 Registered Clinic 3 BABAK RENAE [facility] [id number] [facility] 2017-07-24 12:01:00 2017-07-24 12:01:00 Registered Clinic BABAK FOOTE [facility] [id number] [facility] Results Test Description Test Time Test Comments Results Result Comments Source COMPREHENSIVE METABOLIC PANEL 2019-06-13 14:40:00 Test Item SODIUM (test code = NA) 137 mmol/L 135-145 N POTASSIUM (test code = K) 4.2 mmol/L 3.6-5.0 N CHLORIDE (test code = CL) 99 mmol/L 101-111 L CARBON DIOXIDE (test code = CO2) 30 mmol/L 21-31 N GLUCOSE (test code = GLU) 96 mg/dl 70-100 N BLOOD UREA NITROGEN (test code = BUN) 6 mg/dl 6-20 N GLOMERULAR FILTRATION RATE (test code = GFR) >=60 max estimate >60 The estimated glomerular filtration rate is computed usingpatient race, age (>18), sex, and serum creatinine. If anyof the needed data elements are missing the Laboratory cannot compute an estimation of the glomerular filtration rate. CREATININE (test code = CREAT) 0.67 mg/dL 0.64-1.27 N TOTAL PROTEIN (test code = PROT) 6.7 g/dL 6.7-8.2 N ALBUMIN (test code = ALB) 3.6 g/dL 3.2-5.5 N CALCIUM (test code = CA) 8.9 mg/dL 8.5-10.5 N BILIRUBIN TOTAL (test code = BILT) 0.80 mg/dL 0.2-1.3 N SGOT/AST (test code = AST) 18 U/L 10-42 N SGPT/ALT (test code = ALT) 21 U/L 10-60 N ALKALINE PHOSPHATASE (test code = ALKP) 56 U/L 42-121 N CBC W/AUTO [id number] 14:01:00* Test Item Value Reference Range Interpretation Comments WHITE BLOOD CELL (test code = WBC) 6.8 x10 3/uL 3.2-11.5 N RED BLOOD CELL (test code = RBC) 4.53 x10(6)/m 4.20-5.70 N HEMOGLOBIN (test code = HGB) 14.3 g/dL 12.9-17.3 N HEMATOCRIT (test code = HCT) 43.2 % 38.7-51.0 N MEAN CELL VOLUME (test code = MCV) 95 fL 80-100 N MEAN CELL HGB (test code = MCH) 31.5 pg 26.7-33.3 N MEAN CELL HGB CONCENTRATION (test code = MCHC) 33.1 g/dL 30.0-34 .0 N RED CELL DISTRIBUTION WIDTH (test code = RDW) 14.4 % 11.3-14. 5 N PLATELET COUNT (test code = PLT) 196 x10 3/uL 130-408 N MEAN PLATELET VOLUME (test code = MPV) 10.1 fl 6.4-10.5 N NEUTROPHIL % (test code = NT%) 59.3 % 40.0-70.0 N LYMPHOCYTE % (test code = LY%) 26.2 % 20-40 N MONOCYTE % (test code = MO%) 13.2 % 1-10 H EOSINOPHIL % (test code = EO%) 0.9 % 1.0-5.0 L BASOPHIL % (test code = BA%) 0.4 % 0.0-1.0 N NEUTROPHIL # (test code = NT#) 4.0 x10 3/uL 1.6-7.2 N LYMPHOCYTE # (test code = LY#) 1.80 x10 3/uL 1.1-2.7 N MONOCYTE # (test code = MO#) 0.9 x10 3/uL 0.3-0.8 H EOSINOPHIL # (test code = EO#) 0.1 x10 3/uL 0.0-0.5 N BASOPHIL # (test code = BA#) 0.0 x10 3/uL 0.0-0.1 N Differential Total Cells [id number] 19:32:00* Test Item Value Reference Range Interpretation Comments Differential Total Cells Counted (test code = Differjakob tial Total Cells Counted) 100 [facility] (Manual)2018-08-09 19:32:00 * Test Item Value Reference Range Interpretation Comments Neutrophils % (Manual) (test code = 09023-6) 66 40-74 [facility]Lymphocytes % (Manual)2018-08-09 19:32:00 * Test Item Value Reference Range Interpretation Comments Lymphocytes % (Manual) (test code = 737-7) 26 19-48 [facility] % (Manual)2018-08-09 19:32:00* Test Item Value Reference Range Interpretation Comments Monocytes % (Manual) (test code = 744-3) 5 3.4-9.0 [facility] % (Manual)2018-08-09 19:32:00 * Test Item Value Reference Range Interpretation Comments Eosinophils % (Manual) (test code = 714-6) 3 0-7 [facility] CenterHypersegmented [id number] 19:32:00* Test Item Value Reference Range Interpretation Comments Hypersegmented Neutrophils (test code = 765-8) FEW [facility] CenterPlatelet [id number] 19:32:00* Test Item Value Reference Range Interpretation Comments Platelet Estimate (test code = 34455-7) ADEQUATE [facility] CenterPlatelet Morphology [id number] 19:32:00* Test Item Value Reference Range Interpretation Comments Platelet Morphology Comment (test code = 19027-6) NORMAL [facility] CenterUrine [id number] 19:18:00* Test Item Value Reference Range Interpretation Comments Urine WBC (test code = 5821-4) NONE 0-5 [facility] Center[facility] [id number] 19:18:00* Test Item Value Reference Range Interpretation Comments Urine RBC (test code = 57325-8) NONE 0-5 [facility] [id number] 19:18:00* Test Item Value Reference Range Interpretation Comments Urine Bacteria (test code = 24698-1) MODERATE NONE H [facility] Center[facility] Epithelial [id number] 19:18:00 * Test Item Value Reference Range Interpretation Comments Urine Epithelial Cells (test code = 13733-3) RARE NONE [facility] [id number] 19:07:00* Test Item Value Reference Range Interpretation Comments Urine Color (test code = 5778-6) YELLOW YELLOW [facility] [id number] 19:07:00* Test Item Value Reference Range Interpretation Comments Urine Clarity (test code = 69234-8) CLEAR CLEAR [facility] Specific [id number] 19:07:00 * Test Item Value Reference Range Interpretation Comments Urine Specific [place] (test code = 5811-5) 1.010 1.010-1.02 5 [facility] [id number] 19:07:00* Test Item Value Reference Range Interpretation Comments Urine pH (test code = 39694-0) 7 5-7 [facility] Leukocyte Rbkhwrpe6446-04-60 19:07:00* Test Item Value Reference Range Interpretation Comments Urine Leukocyte Esterase (test code = 5799-2) NEGATIVE NEGATIVE [facility] [id number] 19:07:00* Test Item Value Reference Range Interpretation Comments Urine Nitrite (test code = 94366-7) NEGATIVE NEGATIVE [facility] [id number] 19:07:00* Test Item Value Reference Range Interpretation Comments Urine Protein (test code = 5804-0) NEGATIVE NEGATIVE [facility] Glucose (UA)2018-08-09 19:07:00* Test Item Value Reference Range Interpretation Comments Urine Glucose (UA) (test code = 2349-9) NEGATIVE NEGATIVE [facility] Mxtvusj7409-07-31 19:07:00* Test Item Value Reference Range Interpretation Comments Urine Ketones (test code = 41461-6) NEGATIVE NEGATIVE [facility] [id number] 19:07:00* Test Item Value Reference Range Interpretation Comments Urine Urobilinogen (test code = 98553-4) 0.2 0.2-1 [facility] [id number] 19:07:00* Test Item Value Reference Range Interpretation Comments Urine Bilirubin (test code = 1978-6) NEGATIVE NEGATIVE [facility] [id number] 19:07:00* Test Item Value Reference Range Interpretation Comments Urine Blood (test code = 65667-7) NEGATIVE NEGATIVE [facility] CenterCreatine Kinase [id number] 18:58:00* Test Item Value Reference Range Interpretation Comments Creatine Kinase MB (test code = 69540-2) 1.20 0-5.0 [facility] CenterTroponin [id number] 18:58:00* Test Item Value Reference Range Interpretation Comments Troponin I (test code = NJJ2337) 0.011 0-0.300 [facility] CenterTotal Kqkmajk5468-34-03 18:42:00* Test Item Value Reference Range Interpretation Comments Total Protein (test code = 2885-2) 6.1 6.5-8.1 L [facility] CenterGlobulin2018-11-16 18:42:00* Test Item Value Reference Range Interpretation Comments Globulin (test code = 18828-1) 3.2 2.3-3.5 [facility] CenterAlbumin/Globulin [id number] 18:42:00 * Test Item Value Reference Range Interpretation Comments Albumin/Globulin Ratio (test code = 1759-0) 0.9 0.8-2.0 [facility] [id number] 18:12:00* Test Item Value Reference Range Interpretation Comments Sodium Level (test code = 2951-2) 139 136-145 [facility] CenterPotassium Ttabi3857-18-15 18:12:00* Test Item Value Reference Range Interpretation Comments Potassium Level (test code = 2823-3) 4.2 3.5-5.1 [facility] CenterChloride [id number] 18:12:00* Test Item Value Reference Range Interpretation Comments Chloride Level (test code = 2075-0) 100 98-107 [facility] CenterCarbon Dioxide [id number] 18:12:00* Test Item Value Reference Range Interpretation Comments Carbon Dioxide Level (test code = 2028-9) 30 22-29 H [facility] CenterAnion [id number] 18:12:00* Test Item Value Reference Range Interpretation Comments Anion Gap (test code = 12168-6) 13.2 8-16 [facility] CenterBlood Urea Ssqbsqwz2294-14-26 18:12:00* Test Item Value Reference Range Interpretation Comments Blood Urea Nitrogen (test code = 3094-0) 9 7-26 [facility] CenterCreatinine2018-11-16 18:12:00* Test Item Value Reference Range Interpretation Comments Creatinine (test code = 2160-0) 0.69 0.72-1.25 L [facility] CenterBUN/Creatinine [id number] 18:12:00* Test Item Value Reference Range Interpretation Comments BUN/Creatinine Ratio (test code = 3097-3) 13 6-25 [facility] CenterEstimat Glomerular Filtration Rate 2018-08-09 18:12:00* Test Item Value Reference Range Interpretation Comments Estimat Glomerular Filtration Rate (test code = 025917070) > 60 >60 Ranges were taken from the National Kidney Disease Education Program and the [facility] literature.Reference ranges:60 or greater: Rnozae07-00 ( for 3 consecutive months): Chronic kidney disease 15 or less: Kidney failureCitizens Medical CenterGlucose [id number] 18:12:00* Test Item Value Reference Range Interpretation Comments Glucose Level (test code = GIN4682) 110 74-118 [facility] CenterCalcium [id number] 18:12:00* Test Item Value Reference Range Interpretation Comments Calcium Level (test code = 62899-8) 9.2 8.4-10.2 [facility] CenterTotal Syzydiiyz6872-80-27 18:12:00* Test Item Value Reference Range Interpretation Comments Total Bilirubin (test code = 1975-2) 0.2 0.2-1.2 [facility] CenterAspartate Amino Transf (AST/SGOT) 2018-08-09 18:12:00* Test Item Value Reference Range Interpretation Comments Aspartate Amino Transf (AST/SGOT) (test code = Aspartate Amino Transf (AST/SGOT)) 14 5-34 [facility] CenterAlanine Aminotransferase (ALT/SGPT) 2018-08-09 18:12:00* Test Item Value Reference Range Interpretation Comments Alanine Aminotransferase (ALT/SGPT) (test code = 1742-6) 14 0-55 [facility] CenterAlbumin2018-11-16 18:12:00* Test Item Value Reference Range Interpretation Comments Albumin (test code = 1751-7) 2.9 3.5-5.0 L [facility] CenterAlkaline Giuvefnwyjb1599-19-78 18:12:00* Test Item Value Reference Range Interpretation Comments Alkaline Phosphatase (test code = 6768-6) 63 40-150 [facility] CenterCreatine [id number] 18:12:00* Test Item Value Reference Range Interpretation Comments Creatine Kinase (test code = 2157-6) 38 30-200 [facility] CenterCT CERVICAL SPINE [id number] 18:12:00 [facility] [address] [address] Patient Name: SARITHA GRESHAM MR #: [id number] : 1960 Age/Sex: 58/M Req #: [id number] Adm Physician: Ordered by: CHAR SHORT MD Report #: [id number] Location: ER Room/Bed: Procedure: 1116-[address]/CT CERVICAL SPINE WO Exam Date: 08/09/18 Exam T esha: 1745 REPORT STATUS: Signed Exam: CTs of the brain and cervical spine without contrast History: Fall, pain Comparison studies: Brain and cervical spine CTs from 06/10/2018 Leonor hnique: Axial images were obtained from the brain and cervical spine. Huerta l and sagittal images reconstructed from the axial data. Dose modulation, iter ative reconstruction, and/or weight based adjustment of the mA/kV was utilize d to reduce the radiation dose to as low as reasonably achievable. Intra venous contrast: None Findings: Head CT: Scalp/skull: Mild sca lp hematoma near the vertex over the left parietal bone. Stable nonspecific fa t stranding in the scalp over the right parietal bone. No fractures, blastic o r lytic lesions. Brain sulci: Moderately prominent, most pronounced in the frontal lobes. Ventricles: Moderate compensatory dilatation. No hydrocephalus. Extra-axial spaces: No masses. No fluid collections. Parenchym a: Confluent hypodensities in the supratentorial and periventricular white ma tter are small vessel ischemic changes. No masses, hemorrhage, acute or mental measurements teacher fidencio cortical vascular insults. Sellar/suprasellar region: No abnormalities. Craniocervical junction: Patent foramen magnum. No Chiari one malformation. Cervical spine CT: Airway: Patent. Fractures: None. Soft tissues: No gross abnormalities. Atlantoaxial articulation: Intact. Alignment: Loss of normal cervical lordosis is either positional or due to muscle spasm. No scoliosis. Cervicomedullary junction: No abnormalities. Patent foramen magn um. Vertebrae: No infection or neoplasm. Degenerative changes: M ildly degenerated disc at C5-C6. Next and no significant canal stenosis. C5-C6 : Moderate right foraminal stenosis due to facet and uncovertebral arthrosis. C6-C7: Mild right foraminal stenosis due to uncovertebral arthrosis. Inci dental findings: Mild calcified atherosclerotic plaque in the carotid bulbs.. IMPRESSION: Head CT: 1. No acute intracranial abnormalities. Specif ically, no intracranial hemorrhage or acute territorial vascular insult. 2. Mild left parietal scalp hematoma. Chronic findings: Mild supratentor ial microvascular ischemic changes with moderate volume predominantly bifronta l volume loss and compensatory dilatation of the ventricles. Cervical spi ne CT: 1. No acute abnormalities. Specifically, no fractures or dislocations. 2. Cannot adequately evaluate for ligament, spinal cord and or vascular ab normalities. Preliminary report dictated by Dr. Kizzy Alexis, Neuroradiolo gy Fellow. A final report by the attending radiologist will follow. Sign ed by: Dr. Nargis Mackey M.D. on 08/09/2018 7:35 PM Dictated By: ELENA MACKEY MD 34 Tr anscribed By: DANYELL on 08/09/181934 COPY TO: CHAR SHORT MD CT BRAIN [id number] 18:12:[address] [address] Patient Name: SARITHA GRESHAM MR #: [id number] : 1960 Age/Sex: 58/M Req #: [id number] Adm Physician: Ordered by: CHAR SHORT MD Report #: [id number] Location: ER Room/Bed: Procedure: 1116-[address]/CT BRAIN WO Exam Date: 08/09/18 Exam Time: 1745 REPORT STATUS: Signed Exam: CTs of the brain and cervical spine without contrast History: Fall, pain Com parison studies: Brain and cervical spine CTs from 06/10/2018 Technique: Axial images were obtained from the brain and cervical spine. Coronal and sag ittal images reconstructed from the axial data. Dose modulation, iterative rec onstruction, and/or weight based adjustment of the mA/kV was utilized to redu ce the radiation dose to as low as reasonably achievable. Intravenous co ntrast: None Findings: Head CT: Scalp/skull: Mild scalp hemato ma near the vertex over the left parietal bone. Stable nonspecific fat strandi ng in the scalp over the right parietal bone. No fractures, blastic or lytic l esions. Brain sulci: Moderately prominent, most pronounced in the frontal l obes. Ventricles: Moderate compensatory dilatation. No hydrocephalus. Extra-axial spaces: No masses. No fluid collections. Parenchyma: Con fluent hypodensities in the supratentorial and periventricular white matter ar e small vessel ischemic changes. No masses, hemorrhage, acute or chronic corti thomas vascular insults. Sellar/suprasellar region: No abnormalities. Cranio cervical junction: Patent foramen magnum. No Chiari one malformation. Cerv ical spine CT: Airway: Patent. Fractures: None. Soft tissues: No sachin ss abnormalities. Atlantoaxial articulation: Intact. Alignment: Loss of n ormal cervical lordosis is either positional or due to muscle spasm. No scolio sis. Cervicomedullary junction: No abnormalities. Patent foramen magnum. Vertebrae: No infection or neoplasm. Degenerative changes: Mildly deg enerated disc at C5-C6. Next and no significant canal stenosis. C5-C6: Moderat e right foraminal stenosis due to facet and uncovertebral arthrosis. C6-C7: Mild right foraminal stenosis due to uncovertebral arthrosis. Incidental fi ndings: Mild calcified atherosclerotic plaque in the carotid bulbs.. IMPR ESSION: Head CT: 1. No acute intracranial abnormalities. Specifically, n o intracranial hemorrhage or acute territorial vascular insult. 2. Mild left parietal scalp hematoma. Chronic findings: Mild supratentorial micro vascular ischemic changes with moderate volume predominantly bifrontal volume loss and compensatory dilatation of the ventricles. Cervical spine CT: 1. No acute abnormalities. Specifically, no fractures or dislocations. 2. Ca nnot adequately evaluate for ligament, spinal cord and or vascular abnormaliti es. Preliminary report dictated by Dr. Kizzy Alexis, Neuroradiology Fellow . A final report by the attending radiologist will follow. Signed by: Dr Natasha Mackey M.D. on 08/09/2018 7:35 PM Dictated By: NARGIS Preciado MD 34 Transcribed By: DANYELL on 08/09/181934 COPY TO: CHAR SHORT MD White Blood [id number] 17:56:00* Test Item Value Reference Range Interpretation Comments White Blood Count (test code = 6690-2) 15.41 4.8-10.8 H [facility] CenterRed Blood Xotmi0392-23-22 17:56:00* Test Item Value Reference Range Interpretation Comments Red Blood Count (test code = 789-8) 3.98 4.3-5.7 L [facility] CenterHemoglobin2018-11-16 17:56:00* Test Item Value Reference Range Interpretation Comments Hemoglobin (test code = 00097-8) 12.4 14.0-18.0 L [facility] CenterHematocrit2018-11-16 17:56:00* Test Item Value Reference Range Interpretation Comments Hematocrit (test code = 4544-3) 39.2 38.2-49.6 [facility] CenterMean Corpuscular Wgjclk6836-45-16 17:56:00* Test Item Value Reference Range Interpretation Comments Mean Corpuscular Volume (test code = 787-2) 98.5 81-99 [facility] CenterMean Corpuscular Vluqkpjpdu7604-06-94 17:56:00* Test Item Value Reference Range Interpretation Comments Mean Corpuscular Hemoglobin (test code = 785-6) 31.2 28-32 [facility] CenterMean Corpuscular Hemoglobin Concent 2018-08-09 17:56:00* Test Item Value Reference Range Interpretation Comments Mean Corpuscular Hemoglobin Concent (test code = 786-4) 31.6 31-35 [facility] CenterRed Cell Distribution Yjrvw7000-34-86 17:56:00* Test Item Value Reference Range Interpretation Comments Red Cell Distribution Width (test code = 55684-3) 13.3 11.7 -14.4 [facility] CenterPlatelet Qvsqr7115-61-69 17:56:00* Test Item Value Reference Range Interpretation Comments Platelet Count (test code = 777-3) 274 140-360 [facility] CenterNeutrophils (%) (Auto)2018-08-09 17:56:00 * Test Item Value Reference Range Interpretation Comments Neutrophils (%) (Auto) (test code = 50054-0) 67.5 38.7-80.0 [facility] CenterLymphocytes (%) (Auto)2018-08-09 17:56:00 * Test Item Value Reference Range Interpretation Comments Lymphocytes (%) (Auto) (test code = 736-9) 20.8 18.0-39.1 [facility] CenterMonocytes (%) (Auto)2018-08-09 17:56:00* Test Item Value Reference Range Interpretation Comments Monocytes (%) (Auto) (test code = 5905-5) 8.0 4.4-11.3 [facility] CenterEosinophils (%) (Auto)2018-08-09 17:56:00 * Test Item Value Reference Range Interpretation Comments Eosinophils (%) (Auto) (test code = 713-8) 1.1 0.0-6.0 [facility] CenterBasophils (%) (Auto)2018-08-09 17:56:00* Test Item Value Reference Range Interpretation Comments Basophils (%) (Auto) (test code = 706-2) 0.3 0.0-1.0 [facility] CenterIM GRANULOCYTES %2018-08-09 17:56:00* Test Item Value Reference Range Interpretation Comments IM GRANULOCYTES % (test code = IM GRANULOCYTES %) 2.3 0.0- 1.0 H [facility] CenterNeutrophils # (Auto)2018-08-09 17:56:00* Test Item Value Reference Range Interpretation Comments Neutrophils # (Auto) (test code = 751-8) 10.4 2.1-6.9 H [facility] CenterLymphocytes # (Auto)2018-08-09 17:56:00* Test Item Value Reference Range Interpretation Comments Lymphocytes # (Auto) (test code = 17279-6) 3.2 1.0-3.2 [facility] CenterMonocytes # (Auto)2018-08-09 17:56:00* Test Item Value Reference Range Interpretation Comments Monocytes # (Auto) (test code = 742-7) 1.2 0.2-0.8 H [facility] CenterEosinophils # (Auto)2018-08-09 17:56:00* Test Item Value Reference Range Interpretation Comments Eosinophils # (Auto) (test code = 711-2) 0.2 0.0-0.4 [facility] CenterBasophils # (Auto)2018-08-09 17:56:00* Test Item Value Reference Range Interpretation Comments Basophils # (Auto) (test code = 704-7) 0.0 0.0-0.1 [facility] CenterAbsolute Immature Granulocyte (auto 2018-08-09 17:56:00* Test Item Value Reference Range Interpretation Comments Absolute Immature Granulocyte (auto (vaibhav t code = Absolute Immature Granulocyte (auto) 0.35 0-0.1 [facility] Gziyhnk1642-94-48 18:48:00* Test Item Value Reference Range Interpretation Comments Bedside Glucose (test code = 49710-0) 108 70-120 Meter ID: [id number] [facility] Hospital Glucose 2018-06-17 07:49:00* Test Item Value Reference Range Interpretation Comments Bedside Glucose (test code = 00103-7) 96 70-120 Meter ID: [id number] Medical CenterDifferential Total Cells Cnlribd7626-40-09 06:53:00* Test Item Value Reference Range Interpretation Comments Differential Total Cells Counted (test code = Samra tial Total Cells Counted) 100 [facility] CenterNeutrophils % (Manual)2018-06-12 06:53:00 * Test Item Value Reference Range Interpretation Comments Neutrophils % (Manual) (test code = 11239-8) 62 40-74 [facility] CenterLymphocytes % (Manual)2018-06-12 06:53:00 * Test Item Value Reference Range Interpretation Comments Lymphocytes % (Manual) (test code = 737-7) 24 19-48 [facility] CenterMonocytes % (Manual)2018-06-12 06:53:00* Test Item Value Reference Range Interpretation Comments Monocytes % (Manual) (test code = 744-3) 11 3.4-9.0 H [facility] CenterReactive Syqmetgmxel4485-86-91 06:53:00* Test Item Value Reference Range Interpretation Comments Reactive Lymphocytes (test code = 93212-4) 3 [facility] CenterPlatelet Xdvvjlue4093-65-84 06:53:00* Test Item Value Reference Range Interpretation Comments Platelet Estimate (test code = 98078-3) SLIGHTLY DECREASED [facility] CenterHypochromasia2018-09-19 06:53:00* Test Item Value Reference Range Interpretation Comments Hypochromasia (test code = 728-6) SLIGHT [facility] CenterAnisocytosis2018-09-19 06:53:00* Test Item Value Reference Range Interpretation Comments Anisocytosis (test code = 702-1) SLIGHT [facility] CenterRed Cell Morphology Bgyzqkg8471-10-22 06:53:00* Test Item Value Reference Range Interpretation Comments Red Cell Morphology Comment (test code = 6742-1) NORMAL [facility] CenterReactive Xvowrdtrdxq2589-55-00 06:53:00* Test Item Value Reference Range Interpretation Comments Reactive Lymphocytes (test code = 01289-5) 3 [facility] CenterHypochromasia2018-09-19 06:53:00* Test Item Value Reference Range Interpretation Comments Hypochromasia (test code = 728-6) SLIGHT [facility] CenterAnisocytosis2018-09-19 06:53:00* Test Item Value Reference Range Interpretation Comments Anisocytosis (test code = 702-1) SLIGHT [facility] CenterRed Cell Morphology Ijmyzgc3504-88-96 06:53:00* Test Item Value Reference Range Interpretation Comments Red Cell Morphology Comment (test code = 6742-1) NORMAL [facility] Vdnst6373-79-42 05:29:00* Test Item Value Reference Range Interpretation Comments Sodium Level (test code = 2951-2) 136 136-145 [facility] CenterPotassium Jhutt9523-75-52 05:29:00* Test Item Value Reference Range Interpretation Comments Potassium Level (test code = 2823-3) 4.8 3.5-5.1 [facility] CenterChloride Zjodm1861-70-61 05:29:00* Test Item Value Reference Range Interpretation Comments Chloride Level (test code = 2075-0) 96 98-107 L [facility] CenterCarbon Dioxide Vlbbi2338-80-68 05:29:00* Test Item Value Reference Range Interpretation Comments Carbon Dioxide Level (test code = 2028-9) 30 22-29 H [facility] CenterAnion Wek4121-84-27 05:29:00* Test Item Value Reference Range Interpretation Comments Anion Gap (test code = 24751-5) 14.8 8-16 [facility] CenterBlood Urea Xuiwlxcj3494-83-01 05:29:00* Test Item Value Reference Range Interpretation Comments Blood Urea Nitrogen (test code = 3094-0) 11 7-26 [facility] CenterCreatinine2018-09-19 05:29:00* Test Item Value Reference Range Interpretation Comments Creatinine (test code = 2160-0) 0.78 0.72-1.25 [facility] CenterBUN/Creatinine Purao5562-44-42 05:29:00* Test Item Value Reference Range Interpretation Comments BUN/Creatinine Ratio (test code = 3097-3) 14 6-25 [facility] CenterEstimat Glomerular Filtration Rate 2018-06-12 05:29:00* Test Item Value Reference Range Interpretation Comments Estimat Glomerular Filtration Rate (test code = 913282151) 60- >60 Ranges were taken from the National Kidney Disease Education Program and the [facility] literature.Reference ranges:60 or greater: Vxkaze39-72 ( for 3 consecutive months): Chronic kidney disease 15 or less: Kidney failureCitizens Medical CenterGlucose Crtxk3112-09-00 05:29:00* Test Item Value Reference Range Interpretation Comments Glucose Level (test code = XVG4635) 111 74-118 [facility] CenterCalcium Waewr4362-61-04 05:29:00* Test Item Value Reference Range Interpretation Comments Calcium Level (test code = 96590-1) 9.2 8.4-10.2 [facility] CenterWhite Blood Srzcc2523-79-58 05:08:00* Test Item Value Reference Range Interpretation Comments White Blood Count (test code = 6690-2) 9.49 4.8-10.8 [facility] CenterRed Blood Zhjja7440-98-32 05:08:00* Test Item Value Reference Range Interpretation Comments Red Blood Count (test code = 789-8) 3.17 4.3-5.7 L [facility] CenterHemoglobin2018-09-19 05:08:00* Test Item Value Reference Range Interpretation Comments Hemoglobin (test code = 25122-7) 10.3 14.0-18.0 L [facility] CenterHematocrit2018-09-19 05:08:00* Test Item Value Reference Range Interpretation Comments Hematocrit (test code = 4544-3) 30.4 38.2-49.6 L [facility] CenterMean Corpuscular Joopzj9927-21-72 05:08:00* Test Item Value Reference Range Interpretation Comments Mean Corpuscular Volume (test code = 787-2) 95.9 81-99 [facility] CenterMean Corpuscular Fjvawkdvag3900-98-10 05:08:00* Test Item Value Reference Range Interpretation Comments Mean Corpuscular Hemoglobin (test code = 785-6) 32.5 28-32 H [facility] CenterMean Corpuscular Hemoglobin Concent 2018-06-12 05:08:00* Test Item Value Reference Range Interpretation Comments Mean Corpuscular Hemoglobin Concent (test code = 786-4) 33.9 31-35 [facility] CenterRed Cell Distribution Annqn4136-63-51 05:08:00* Test Item Value Reference Range Interpretation Comments Red Cell Distribution Width (test code = 72727-2) 12.5 11.7 -14.4 [facility] CenterPlatelet Rapqj2777-78-64 05:08:00* Test Item Value Reference Range Interpretation Comments Platelet Count (test code = 777-3) 139 140-360 L [facility] CenterNeutrophils (%) (Auto)2018-06-12 05:08:00 * Test Item Value Reference Range Interpretation Comments Neutrophils (%) (Auto) (test code = 14019-7) 59.1 38.7-80.0 [facility] CenterLymphocytes (%) (Auto)2018-06-12 05:08:00 * Test Item Value Reference Range Interpretation Comments Lymphocytes (%) (Auto) (test code = 736-9) 23.0 18.0-39.1 [facility] CenterMonocytes (%) (Auto)2018-06-12 05:08:00* Test Item Value Reference Range Interpretation Comments Monocytes (%) (Auto) (test code = 5905-5) 16.9 4.4-11.3 H [facility] CenterEosinophils (%) (Auto)2018-06-12 05:08:00 * Test Item Value Reference Range Interpretation Comments Eosinophils (%) (Auto) (test code = 713-8) 0.3 0.0-6.0 [facility] CenterBasophils (%) (Auto)2018-06-12 05:08:00* Test Item Value Reference Range Interpretation Comments Basophils (%) (Auto) (test code = 706-2) 0.2 0.0-1.0 [facility] CenterIM GRANULOCYTES %2018-06-12 05:08:00* Test Item Value Reference Range Interpretation Comments IM GRANULOCYTES % (test code = IM GRANULOCYTES %) 0.5 0.0- 1.0 [facility] CenterNeutrophils # (Auto)2018-06-12 05:08:00* Test Item Value Reference Range Interpretation Comments Neutrophils # (Auto) (test code = 751-8) 5.6 2.1-6.9 [facility] CenterLymphocytes # (Auto)2018-06-12 05:08:00* Test Item Value Reference Range Interpretation Comments Lymphocytes # (Auto) (test code = 08617-3) 2.2 1.0-3.2 [facility] CenterMonocytes # (Auto)2018-06-12 05:08:00* Test Item Value Reference Range Interpretation Comments Monocytes # (Auto) (test code = 742-7) 1.6 0.2-0.8 H [facility] CenterEosinophils # (Auto)2018-06-12 05:08:00* Test Item Value Reference Range Interpretation Comments Eosinophils # (Auto) (test code = 711-2) 0.0 0.0-0.4 [facility] CenterBasophils # (Auto)2018-06-12 05:08:00* Test Item Value Reference Range Interpretation Comments Basophils # (Auto) (test code = 704-7) 0.0 0.0-0.1 [facility] CenterAbsolute Immature Granulocyte (auto 2018-06-12 05:08:00* Test Item Value Reference Range Interpretation Comments Absolute Immature Granulocyte (auto (vaibhav t code = Absolute Immature Granulocyte (auto) 0.05 0-0.1 [facility] CenterMRI RIGHT KNEE JW0269-22-58 10:59:00 [facility] [address] [address] Patient Name: SARITHA GRESHAM MR #: [id number] : 1960 Age/Sex: 58/M Req #: [id number] [facility] Physician: RIA BUSTAMANTE MD Ordered by: CHAO YUAN MD Report #: [id number] Loca tion: MED/SURG2 Room/Bed: [facility] Procedure: [id number] MRI/MRI RIGHT KNEE WO Exam Date: Exam Time: REPORT STATUS: Signed TECHNIQUE: Magnetic resonance imaging of the RIGHT KN EE was performed WITHOUT injected contrast. HISTORY: Fall, pain CHICA RISON: Right knee radiographs June 10, 2018. FINDINGS: Metallic guadarrama sceptibility artifact and inhomogeneous fat saturation limit the evaluation. The following findings are within these limitations. LIGAMENTS AND TENDONS: ACL: Intact PCL: Intact Collateral ligaments: Intact Iliotibial band: Unremarkable Popliteal tendon: Intact Extensor mechanism: Intact JOINT: Menisci: Medial: No discrete visible displaced tear. Lateral: No discrete visible displaced tear. Articular Cartilage: Medial Compartment: No focal defect. Lateral Compartment: No focal defect. Patellofemoral Co mpartment: Full-thickness erosion of the patellar apex and adjacent facets. Joint Fluid: The amount of fluid within the joint is within physiologic l imits. BONES: Partially obscured by the stated limitations, but no visi ble focal or infiltrative bone marrow replacing abnormality or acute fracture. SOFT TISSUES: Within the superficial anterolateral soft tissues, a 8 cm (AP) x 5 cm (ML) x 14 cm (CC) heterogeneous collection with prominent chanel rounding regional soft tissue edema. IMPRESSION: 1. Large anterolat eral superficial soft tissue collection, given the provided history, compatibl e with a large hematoma. 2. Moderate patellofemoral compartment osteoarthrosi s. Signed by: Dr. Manny Tucker D.O., M.M.M. on 06/11/2018 11:09 AM Di ctated By: MANNY TUCKER DO 08 Transcribed By: DANYELL on 06/11/181108 COPY TO: CHAO YUAN MD CT CERVICAL SPINE [id number] 22:37:[address] [address] Patient Name: SARITHA GRESHAM MR #: [id number] : 1960 Age/Sex: 58/M Req #: [id number] Adm Physician: Ordered by: CHAO YUAN MD Report #: [id number] Location: ER Room/Bed: Procedure: [id number] CT/CT CERVICAL SPINE WO Exam Date: 06/10/18 Exam Time: 2133 REPORT STATUS: Signed History: Fall Comparison studies: None Technique: Axial imag es were obtained through the cervical region.. Coronal and sagittal images rec onstructed from the axial data.. Intravenous contrast: None Findings: Fractures: None. Soft tissues: No gross abnormalities. Atlantoaxial art iculation: Intact. Alignment: Straightening of the normal lordosis. No scolios is. Cervicomedullary junction: No abnormalities. The foramen magnum is patent. Vertebrae: No infection or neoplasm. Degenerative changes: The. IMPRESSION: 1. No acute cervical spine abnormalities. 2. Cannot exclude ligament, spinal cord and or vascular abnormalities on the basis of this examination. Signed by: DR Marcial Diaz M.D. on 06/10/2018 10: 40 PM Dictated By: MARCIAL CH MD 39 Transcribed By: DANYELL on 06/10/182239 COPY TO: CHAO YUAN MD CT BRAIN [id number] 22:28:00 [address] [address] Patient Name: SARITHA GRESHAM MR #: [id number] : 1960 Age/Sex: 58/M Req #: [id number] Adm Physician: Ordered by: CHAO YUAN MD Report #: [id number] Location: ER Room/Bed: Procedure: [id number] CT/CT BRAIN WO Exam Date: Exam Time: 2133 REPORT STATUS: Signed History:Fall Comparison studies:CT head 05/21/2018 Technique: Axial mirna ges were obtained from the skull base to the vertex. Coronal and sagittal imag es reconstructed from the axial data. Intravenous contrast: None Findings : Scalp/skull: No acute abnormalities. Bifrontal nuha holes Extra-a xial spaces: No masses. No fluid collections. Brain sulci: Moderately p rominent the frontal convexities. Ventricles: Moderate compensatory dilatation . No hydrocephalus. Parenchyma: Scattered small hypodensities in the sup ratentorial white matter are small vessel ischemic changes. No masses, hemorrh age, acute or chronic cortical vascular insults. Sellar/suprasellar regio n: No abnormalities. Craniocervical junction: Patent foramen magnum. No Chiar i one malformation. Incidental findings: Atherosclerotic calcifications i n the carotid siphons . Impression: No acute abnormalities. Chron ic findings: 1. Moderate frontal volume loss, stable. 2. Stable ventriculo megaly more prominent at the frontal horns, stable. 3. Mild supratentorial wh ite matter small vessel ischemic changes. 4. Bifrontal nuha holes. Mckayla d by: DR Marcial Diaz M.D. on 06/10/2018 10:37 PM 1. Dictated By: MARCIAL CH MD 36 COPY TO: PARAMJIT YUAN MD HIP RIGHT 2-3 VW (+/- PELVIS)2018-06-10 22:06:00 [address] [address] Patient Name: SARITHA GRESHAM MR #: [id number] : 1960 Age/Sex: 58/M Req #: [id number] Adm Physician: Ordered by: CHAO YUAN MD Report #: [id number] Location: ER Room/Bed: Procedure: [id number] DX/HIP RIGHT 2-3 VW (+/- PELV IS) Exam Date: Exam Time: REPORT STATUS: Sig john EXAM: HIP RIGHT 2-3 VW (+/- PELVIS) INDICATION: Right knee pain after f all COMPARISON: None FINDINGS: BONES: There is an old healed right f emoral mid shaft fracture stabilized with cerclage wire and an intramedullary laura that traverses through the greater trochanter. There is no evidence of a p luda or hip fracture. Neither femoral neck is seen in profile. JOINTS: Degenerative changes of the bilateral hips. SOFT TISSUES: Normal IM PRESSION: No evidence of an acute pelvic or right hip fracture. Signed by: Dr. Micheal Quinteros M.D. on 06/10/2018 10:09 PM Dictated By: MICHEAL QUINTEROS MD 08 Transc ribed By: DANYELL on 06/10/182208 COPY TO: CHAO YUAN MD KNEE RIGHT THREE [id number] 22:00:00 [address] [place] [address] Patient Name: SARITHA GRESHAM MR #: [id number] : 1960 Age/Sex: 58/M Req #: [id number] Adm Physician: Ordered by: CHAO YUAN MD Report #: [id number] Location: ER Room/Bed: Procedure: [id number] DX/KNEE RIGHT THREE VIEWS Ex am Date: 06/10/18 Exam Time: 2146 REPORT STATUS : Signed EXAM: KNEE RIGHT THREE VIEWS, AP, lateral and oblique INDICATION: Right knee pain after fall today COMPARISON: None FINDINGS: BONES: O ld healed right femoral mid shaft fracture stabilized by intramedullary laura an d cerclage wires. A screw traverses across the proximal tibial metaphysis. N o acute fracture. JOINTS: No malalignment. SOFT TISSUES: Soft tiss ue swelling predominantly anterior lateral aspect of the knee. Study is indete rminate for joint effusion. IMPRESSION: Large amount of soft tissue swell ing/possible hematoma predominantly anterior and lateral aspect of the knee. T he study is indeterminate for joint effusion. No evidence of an acute fracture . If symptoms persist, a follow-up MRI is recommended to evaluate for ligament ous injury. Signed by: Dr. Micheal Quinteros M.D. on 06/10/2018 10:06 PM Dictated By: MICHEAL QUINTEROS MD 05 Transcribed By: DANYELL on 06/10/182205 COPY TO: CHAO LI MD Total Yjjzbhrkb9424-06-98 21:28:00* Test Item Value Reference Range Interpretation Comments Total Bilirubin (test code = 1975-2) 0.3 0.2-1.2 [facility] CenterAspartate Amino Transf (AST/SGOT) 2018-06-10 21:28:00* Test Item Value Reference Range Interpretation Comments Aspartate Amino Transf (AST/SGOT) (test code = Aspartate Amino Transf (AST/SGOT)) 12 5-34 [facility] CenterAlanine Aminotransferase (ALT/SGPT) 2018-06-10 21:28:00* Test Item Value Reference Range Interpretation Comments Alanine Aminotransferase (ALT/SGPT) (test code = 1742-6) 10 0-55 [facility] CenterTotal Tlxzcfu3085-71-27 21:28:00* Test Item Value Reference Range Interpretation Comments Total Protein (test code = 2885-2) 6.0 6.5-8.1 L [facility] CenterAlbumin2018-09-17 21:28:00* Test Item Value Reference Range Interpretation Comments Albumin (test code = 1751-7) 3.4 3.5-5.0 L [facility] CenterGlobulin2018-09-17 21:28:00* Test Item Value Reference Range Interpretation Comments Globulin (test code = 88025-2) 2.6 2.3-3.5 [facility] CenterAlbumin/Globulin Loxru7416-46-94 21:28:00 * Test Item Value Reference Range Interpretation Comments Albumin/Globulin Ratio (test code = 1759-0) 1.3 0.8-2.0 [facility] CenterAlkaline Rpjflcfmlty9387-68-33 21:28:00* Test Item Value Reference Range Interpretation Comments Alkaline Phosphatase (test code = 6768-6) 49 40-150 [facility] CenterCT BRAIN MW2334-98-30 11:52:00 [facility] [address] [address] Patient Name: SARITHA GRESHAM MR #: [id number] : 1960 Age/Sex: 58/M Req #: [id number] Adm Physician: Ordered by: JESU STEEN MD Report #: [id number] Location: ER Room/ Bed: Procedure: [id number] CT/CT BRAIN WO Exam Date: 05/02/18 Exam Time: 1005 REPORT STATUS: Signed ADDENDUM #1 Dose modulation, iterative reconstructi on, and/or weight based adjustment of the mA/kV was utilized to reduce the rad iation dose to as low as reasonably achievable. Signed by: DR Marcial Diaz M.D. on 05/21/2018 7:59 PM ORIGINAL REPORT Hi story:Confusion Comparison studies:MRI brain 03/25/2015 Technique: Axial images were obtained from the skull base to the vertex. Coronal and sagittal i mages reconstructed from the axial data. Intravenous contrast: None Findi ngs: Scalp/skull: No acute abnormalities. Bifrontal nuha holes Extr a-axial spaces: No masses. No fluid collections. Brain sulci: Moderatel y prominent the frontal convexities. Ventricles: Moderate compensatory dilatat ion. No hydrocephalus. Parenchyma: Scattered small hypodensities in the supratentorial white matter are small vessel ischemic changes. No masses, hemo rrhage, acute or chronic cortical vascular insults. Sellar/suprasellar re gion: No abnormalities. Craniocervical junction: Patent foramen magnum. No Ch iari one malformation. Incidental findings: Atherosclerotic calcification s in the carotid siphons . Impression: No acute abnormalities. Ch ronic findings: 1. Moderate frontal volume loss, this could be seen in some d ementias. Mild generalized bone 2. Stable ventriculomegaly more prominent a t the frontal horns, could be seen in volume loss or normal pressure hydrocep halus. 3. Mild supratentorial white matter small vessel ischemic changes. 4 . Bifrontal nuha holes. Signed by: DR Marcial Diaz M.D. on 05/02/20 11:59 AM Dictated By: MARCIAL CH MD 58 Transcribed By: DANYELL on 05/02/18 115 COPY TO: JESU STEEN MD MRI KNEE LEFT [id number] 08:48:00 [address] [address] Patient Name: SARITHA GRESHAM MR #: [id number] : 1960 Age/Sex: 58/M Req #: [id number] Adm Physician: Ordered by: BABAK RENAE MD Report #: [id number] Location: MRI Pat m/Bed: Procedure: [id number] MRI/MRI KNEE LEFT WO Nikole m Date: Exam Time: REPORT STATUS: Signed L eft knee MRI without contrast. History: Knee pain. Internal arrangement. Fa ll. Decreased range of motion Comparison: October 26, 2016. Technique: Multiplanar multi-sequence MRI of the knee without contrast. Findings: Medial compartment: There is an obliquely oriented tear involving the posterior horn of the medial meniscus which is essentially unchanged. The medial co mpartmental articular cartilage surfaces are thinned with regions of fraying a nd fissuring. There are small peripheral marginal osteophytes. The medial chan ateral ligament complex is intact. Lateral compartment: There is a complex lateral meniscal tear involving the anterior horn and body segments. There are regions of full-thickness articular cartilage loss in the lateral compartment with underlying bone marrow edema. This is worse when compared with the prior exam. There are peripheral marginal osteophytes. The lateral collateral ligam ent complex is intact. Intercondylar notch: The ACL and PCL are intact. Patellofemoral compartment: There are regions of full-thickness articular c artilage loss in the patellofemoral compartment with underlying bone marrow ed veronica. Extensor mechanism: The quadriceps and patellar tendons are normal. Other findings: There is a joint effusion and synovitis. There is no [place] fracture, subluxation or avascular necrosis. 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 IMPRESSION: Complex lateral meniscal tear with advanced degenerative arthrosis in the lateral compartment of the knee. This is worse when compared with the prior exam. Nondisplaced medial meniscal tear with early degenerative arthrosis in the medial compartment of the knee. This is essentially unchanged Regions of full-thickness articular cartilage loss in the patellofemoral compartment with mild underlying bone marrow edema. This is essentially unchanged Joint effusion, synovitis and lobulated Laughlin's c yst. This is essentially unchanged. Signed by: Dr. Moira Torres M.D. on 9:00 AM Dictated By: MOIRA TORRES MD, MD 9 Transcribed By: DANYELL on 03/21/18 COPY TO: BABAK RENAE MD KNEE LEFT THREE [id number] 12:51:00 [facility] [address] [address] Patient Name: SARITHA GRESHAM MR #: [id number] : 1960 Age/Sex: 58/M Req #: [id number] Adm Physician: Ordered by: BABAK RENAE MD Report #: [id number] Location: [facility] Room/Bed: Procedure: [id number] DX/KNEE LEFT THREE VIEWS Exam Date: 03/14/18 Exam Time: 1221 REPORT STA TUS: Signed PROCEDURE: KNEE LEFT THREE VIEWS TECHNIQUE: AP, lateral and oblique views left knee INDICATION: Knee pain; internal derangement. COMP ARISON: None. FINDINGS: The left knee is intact. Mild 3 compartment karen int space narrowing with small marginal osteophytes and subchondral sclerosis . Tibial spine spurring. Small suprapatellar effusion. Index soft tissues. CONCLUSION: Small effusion with 3 compartment degenerative change. Dictated by: Robby Hernandez M.D. on 03/14/2018 at 12:51 E lectronically approved by: Robby Hernandez M.D. on 03/14/2018 at 12:51 Dictated By: ROBBY HERNANDEZ MD 1251 Transcribed By: ROSINA on 03/14/18 1251 COPY TO: BABAK RENAE MD ELBOW LEFT COMPLETE [id number] [address] Patient Name: SARITHA GRESHAM MR #: [id number] : 1960 Age/Sex: 57/M Req #: [id number] Adm Physician: Ordered by: BABAK RENAE MD Report #: [id number] Location: [facility] Room/Bed: Procedure: [id number] DX/ELBOW LEFT COMPLETE E xam Date: Exam Time: REPORT STATUS: Signed PROCEDURE: X-RAY LEFT ELBOW, COMPLETE COMPARISON: None. INDICAT IONS: FALL ELBOW FRACTURE FINDINGS: See below. CONCLUSION: Nondisplaced left radial head fracture. Degenerative changes of the left elbow. Small joint effusion. Dictated by: Brenden Rojo M.D. on 07/24 at 12:56 Electronically approved by: Brenden Rojo M.D. on 2016 at 12:56 Dictated By: BRENDEN ROJO MD Electronically Si gned By: BRENDEN ROJO MD on 07/24/17 1256 Transcribed By: RSOINA on 07/24/17 12 56 COPY TO: BABAK RENAE MD
--- NOTE | 2020-07-10 20:32 | Emergency Department Note ---
History of Present Illnes History of Present Illness Chief Complaint: General Medicine Complaints History of Present Illness This is a 60 year old male PRESENTS TO ED WITH REPORT OF MULTIPLE FALLS AT [place] (FOCUSED CARE AT [place]AT NECK); PT/NH STAFF DENIES LOC; PTS V/S/S; RESP RATE AND EFFORT ARE WNL, O2 SAT RA 99% . 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 Any updates have been documented here. Past Medical History Recent Fever: No Clinical Suspicion of Infectio: No New/Unexplained Change in Ment: No Past Medical History: Hypertension, Seizure Disorder, UTI's, Depression, GERD Other Medical History: 3 head injuries unsteady gait with h/o reccurent falling, pt wears a helmet TRAUMATIC BRAIN INJURY Past Surgical History: Appendectomy Other Surgery: leg surgery Social History Smoking Cessation: Never Smoker Alcohol Use: None Any Illegal Drug Use: No Family History Family history of heart diseas: No Other Last Tetanus: unk Review of Systems Review of Systems Constitutional: Reports no symptoms EENTM: Reports no symptoms Cardiovascular: Reports no symptoms Respiratory: Reports no symptoms Gastrointestinal: Reports no symptoms Genitourinary: Reports no symptoms Musculoskeletal: Reports no symptoms Integumentary: Reports no symptoms Neurological: Reports as per HPI Psychological: Reports no symptoms Endocrine: Reports no symptoms Hematological/Lymphatic: Reports no symptoms Review of other systems: All other systems negative Physical Exam Related Data Allergies: Coded Allergies: cephalexin (Verified Allergy, Unknown, 05/02/18) Triage Vital Signs Vital Signs Date Time Temp Pulse Resp B/P (MAP) Pulse Ox O2 Delivery O2 Flow Rate FiO2 07/10/20 19:57 98.2 73 17 122/82 97 Room Air Vital signs reviewed: Yes Physical Exam CONSTITUTIONAL Constitutional: Present well-developed, Present well-nourished; Absent distressed HENT HENT: Present normocephalic, Present atraumatic, Present oropharynx clear/moist, Present nose normal HENT L/R: Present left ext ear normal, Present right ext ear normal EYES Eyes: Reports PERRL, Reports conjunctivae normal NECK Neck: Present ROM normal PULMONARY Pulmonary: Present effort normal, Present breath sounds normal CARDIOVASCULAR Cardiovascular: Present regular rhythm, Present heart sounds normal, Present capillary refill normal, Present normal rate GASTROINTESTINAL Abdominal: Present soft, Present nontender, Present bowel sounds normal GENITOURINARY Genitourinary: Present exam deferred SKIN Skin: Present warm, Present dry MUSCULOSKELETAL Musculoskeletal: Present ROM normal NEUROLOGICAL Neurological: Present alert, Present oriented x 3, Present no gross motor or sensory deficits, Present abnormal coordination (CHRONIC DUE TO TBI) PSYCHOLOGICAL Psychological: Present mood/affect normal, Present judgement normal Results Imaging Imaging results reviewed: Yes Impressions Procedure: [id number] CT/CT CERVICAL SPINE WO Exam Date: 07/10/20 Exam Time: 2024 REPORT STATUS: Signed History: Recurrent falls. Comparison studies: CT cervical spine from 08/09/2018. Technique: Axial images were obtained through the cervical region.. Coronal and sagittal images reconstructed from the axial data. Dose modulation, iterative reconstruction, and/or weight based adjustment of the mA/kV was utilized to reduce the radiation dose to as low as reasonably achievable. Intravenous contrast: None Findings: Fractures: None. Soft tissue injuries: None. Atlantoaxial articulation: Intact. Alignment: Loss of normal cervical lordosis is either positional or due to muscle spasm. No subluxation. No scoliosis. Cervicomedullary junction: No abnormalities. The foramen magnum is patent. Soft tissues: No abnormalities. Vertebrae: No fractures, infection or neoplasm. Rudimentary left cervical rib. Degenerative changes: C4-C5: Mild right foraminal stenosis due to uncovertebral arthrosis. Posterior disc osteophyte complex without significant canal stenosis. C5-C6: Moderate degenerative disc disease. Posterior disc osteophyte complex without significant canal stenosis. Mild right foraminal stenosis due to facet and uncovertebral arthrosis. IMPRESSION: 1. No acute cervical spine fracture or dislocation. Loss of normal cervical lordosis is either positional or due to muscle spasm. 2. Ligament, spinal cord and or vascular abnormalities cannot be excluded on the basis of this examination. 3. Mild cervical spondylosis as detailed above. Signed by: Dr. Nargis Saeed M.D. on 07/10/2020 9:07 PM Dictated By: NARGIS SAEED MD 06 Transcribed By: DANYELL on 07/10/202106 COPY TO: DONNA QUILES MD~ EXAMINATION: Head CT without contrast. HISTORY:Multiple falls. COMPARISON:CT brain from 08/09/2018. TECHNIQUE: Multidetector axial images were obtained from the foramen magnum to the vertex without contrast. The images were reconstructed using brain and bone algorithms. Thin section brain images were reformatted into coronal and sagittal planes. Dose modulation, iterative reconstruction, and/or weight based adjustment of the mA/kV was utilized to reduce the radiation dose to as low as reasonably achievable. Intravenous contrast: None IMAGE QUALITY: Suboptimal evaluation particularly at the level of skull base and posterior fossa structures due to streak artifacts. FINDINGS: Skull/scalp: No lytic or blastic lesions. Unchanged bilateral frontal nuha hole. Parenchyma: Nonspecific bilateral frontoparietal patchy white matter hypodensity are likely related to small vessel ischemic changes. Nonspecific focal subcutaneous soft tissue thickening in left parieto-occipital scalp. No acute hemorrhage, mass or acute major vascular territorial infarct. Arteries: No density suggestive of thrombosis. Dural sinuses: No abnormal density suggestive of thrombosis. Ventricles: Unchanged advanced compensated dilatation due to volume loss. No acute hydrocephalus. Extra-axial spaces: No abnormal density. Brain volume: Moderate predominantly bilateral frontal and anteromedial aspect of temporal lobe volume loss. Craniocervical junction: No mass, Chiari malformation, or basilar invagination. Sella: No mass. Paranasal/mastoid sinuses: Mild mucosal thickening in bilateral ethmoid sinuses. IMPRESSION: No acute intracranial abnormality. No significant change since CT brain from 08/09/2018. Chronic findings: 1. Mild supratentorial white matter microvascular ischemic changes. 2. Advanced generalized, predominantly bifrontal and temporal volume loss. Signed by: Dr. Nargis Saeed M.D. on 07/10/2020 9:01 PM Dictated By: NARGIS SAEED MD 00 Transcribed By: DANYELL on 07/10/202100 COPY TO: DONNA QUILES MD~ Procedures 12 Lead ECG Interpretation ECG Interpretation : ECG: ECG 1 Director Of Learning: Interpreted by ED physician Date: Jul 10, 2020 Time: 19:53 Rhythm: sinus rhythm Rate: normal BPM: 72 QRS axis: normal ST segments normal: Yes T waves normal: Yes Other findings: LVH Clinical Impression: non-specific ECG Assessment & Plan Medical Decision Making MDM pt s/p fall at correction ct brain ,ct cervical spine ordered to eval for fractures, intracranial injury Assessment & Plan Final Impression: (1) Fall (2) Hx of traumatic brain injury Depart Disposition: DIS TO [facility] BED Last Vital Signs Date Time Temp Pulse Resp B/P (MAP) Pulse Ox O2 Delivery O2 Flow Rate FiO2 07/10/20 19:57 98.2 73 17 122/82 97 Room Air Home Meds Reported Medications Acetaminophen With Codeine (TYLENOL WITH CODEINE #3 TABLET) 1 Each Tablet, 300 MG PO Q8H PRN for PAIN, TAB 08/09/18 Acetaminophen (ACETAMINOPHEN) 325 Mg Tablet, 325 MG PO Q6H PRN for PAIN for 5 Days, TAB 08/09/18 Sodium Chloride (SODIUM CHLORIDE) 1 Gm Tab, 1 GM PO DAILY, #30 TAB 08/09/18 Pantoprazole Sodium* (PROTONIX) 40 Mg Tablet.dr, 40 MG PO DAILY, TAB 08/09/18 Promethazine Hcl (PROMETHAZINE HCL) 25 Mg Tablet, 25 MG PO DAILY PRN for NAUSEA AND VOMITING, TAB 08/09/18 Losartan Potassium (LOSARTAN POTASSIUM) 50 Mg Tablet, DAILY 08/09/18 Tamsulosin Hcl* (FLOMAX*) 0.4 Mg Cap, 0.4 MG PO DAILY, #30 CAP 08/09/18 Docusate Sodium (DOCUSATE SODIUM) 100 Mg Capsule, 100 MG PO Q12H, CAP 08/09/18 Cranberry/Vit C/L. Sporogenes (CRANBERRY TABLET) 1 Each Tablet, 450 BID 08/09/18 Risperidone (RISPERIDONE) 2 Mg Tablet, BID 08/09/18 Fluoxetine Hcl (FLUOXETINE HCL) 10 Mg Capsule, 40 MG PO DAILY, #30 CAP 06/10/18 Divalproex Sodium (DIVALPROEX SODIUM ER) 500 Mg Tab.er.24h, 500 MG PO BID 06/10/18 DONNA QUILES MD Jul 10, 2020 20:32
--- NOTE | 2020-07-10 21:04 | Diagnostic Imaging Report ---
EXAMINATION: Head CT without contrast. HISTORY:Multiple falls. COMPARISON:CT brain from 08/09/2018. TECHNIQUE: Multidetector axial images were obtained from the foramen magnum to the vertex without contrast. The images were reconstructed using brain and bone algorithms. Thin section brain images were reformatted into coronal and sagittal planes. Dose modulation, iterative reconstruction, and/or weight based adjustment of the mA/kV was utilized to reduce the radiation dose to as low as reasonably achievable. Intravenous contrast: None IMAGE QUALITY: Suboptimal evaluation particularly at the level of skull base and posterior fossa structures due to streak artifacts. FINDINGS: Skull/scalp: No lytic or blastic lesions. Unchanged bilateral frontal nuha hole. Parenchyma: Nonspecific bilateral frontoparietal patchy white matter hypodensity are likely related to small vessel ischemic changes. Nonspecific focal subcutaneous soft tissue thickening in left parieto-occipital scalp. No acute hemorrhage, mass or acute major vascular territorial infarct. Arteries: No density suggestive of thrombosis. Dural sinuses: No abnormal density suggestive of thrombosis. Ventricles: Unchanged advanced compensated dilatation due to volume loss. No acute hydrocephalus. Extra-axial spaces: No abnormal density. Brain volume: Moderate predominantly bilateral frontal and anteromedial aspect of temporal lobe volume loss. Craniocervical junction: No mass, Chiari malformation, or basilar invagination. Sella: No mass. Paranasal/mastoid sinuses: Mild mucosal thickening in bilateral ethmoid sinuses. IMPRESSION: No acute intracranial abnormality. No significant change since CT brain from 08/09/2018. Chronic findings: 1. Mild supratentorial white matter microvascular ischemic changes. 2. Advanced generalized, predominantly bifrontal and temporal volume loss. Signed by: Dr. Nargis Mackey M.D. on 07/10/2020 9:01 PM
--- NOTE | 2020-07-10 21:10 | Diagnostic Imaging Report ---
History: Recurrent falls. Comparison studies: CT cervical spine from 08/09/2018. Technique: Axial images were obtained through the cervical region.. Coronal and sagittal images reconstructed from the axial data. Dose modulation, iterative reconstruction, and/or weight based adjustment of the mA/kV was utilized to reduce the radiation dose to as low as reasonably achievable. Intravenous contrast: None Findings: Fractures: None. Soft tissue injuries: None. Atlantoaxial articulation: Intact. Alignment: Loss of normal cervical lordosis is either positional or due to muscle spasm. No subluxation. No scoliosis. Cervicomedullary junction: No abnormalities. The foramen magnum is patent. Soft tissues: No abnormalities. Vertebrae: No fractures, infection or neoplasm. Rudimentary left cervical rib. Degenerative changes: C4-C5: Mild right foraminal stenosis due to uncovertebral arthrosis. Posterior disc osteophyte complex without significant canal stenosis. C5-C6: Moderate degenerative disc disease. Posterior disc osteophyte complex without significant canal stenosis. Mild right foraminal stenosis due to facet and uncovertebral arthrosis. IMPRESSION: 1. No acute cervical spine fracture or dislocation. Loss of normal cervical lordosis is either positional or due to muscle spasm. 2. Ligament, spinal cord and or vascular abnormalities cannot be excluded on the basis of this examination. 3. Mild cervical spondylosis as detailed above. Signed by: Dr. Nargis Mackey M.D. on 07/10/2020 9:07 PM
--- NOTE | 2020-07-10 21:34 | NUR ---
[facility] CALLED FOR TX BACK TO FACILITY; ETA APPROX. 45 MIN.
--- NOTE | 2020-07-11 11:03 | NUR ---
RECEIVED CALL FROM JUAN MIGUEL FROM [facility] ), REQUESTING ANY LAB RESULTS BE FAXED OVER. REVIEWED CHART AND NO LABS WERE DRAWN. RETURNED HER CALL TO LET HER KNOW
== END 2020-07-10 22:33 ==
LOC: ER 19:54
DX: S00.83XA Contusion of other part of head, initial encounter (principal); W01.0XXA Fall on same level from slipping, tripping and stumbling without subsequent striking against object, initial encounter; Z87.820 Personal history of traumatic brain injury; I10 Essential (primary) hypertension; G40.909 Epilepsy, unspecified, not intractable, without status epilepticus; K21.9 Gastro-esophageal reflux disease without esophagitis
CPT/HCPCS: 70450; 72125; 93005; 99284